=== PATIENT | female | born 1995 | race Caucasian/White ===

== ENCOUNTER → 2016-03-25 | Outpatient (CLI) | payer OTHER ==
[2016-03-25 16:30] LABS: CH 34.9; CHCM 35.3; HCT 36.1 % (34.0-46.0); HDW 2.71; HGB 12.3 gm/dL (11.4-16.0); MCH 33.8 pg (25.0-35.0); MCV 99.4 fL (80.0-100.0); Mean Platelet Volume 8.2; RBC 3.63 m/uL (3.80-5.40); RDW 12.6 % (11.5-15.5); WBC 16.1 k/uL (3.8-10.6)
== END | disposition home or self-care (01) ==
LOC: LABWHC1 15:11
PROVIDERS: ATTEND Obstetrics & Gynecology
DX: Z34.93 Encounter for supervision of normal pregnancy, unspecified, third trimester (principal); Z3A.00 Weeks of gestation of pregnancy not specified
CPT/HCPCS: 36415; 82950; 85027; 86850

== ENCOUNTER 2016-05-04 05:56 | Inpatient (IN) | payer OTHER ==
[2016-04-27 11:23] VITALS: BMI 29.6
[2016-05-04] MEDS ORDERED: ceFAZolin 2 GM in SODIUM CHLORIDE 0.9% 100 ML IVPB ONE (06:33)
[2016-05-04] MEDS ORDERED: CITRIC ACID-SODIUM CITRATE 15 ML CUP PO ONE (06:33)
[2016-05-04] MEDS ORDERED: CARBOPROST TROMETHAMINE 250 MCG/ML 1 ML AMP IM PRN (06:35)
[2016-05-04] MEDS ORDERED: LIDOCAINE 1% (PF) 10 MG/ML (30 ML SDV) SQ PRN (06:35)
[2016-05-04] MEDS ORDERED: METHYLERGONOVINE 0.2 MG/ML 1 ML AMP IM PRN (06:35)
[2016-05-04] MEDS ORDERED: OXYTOCIN 10 UNIT/ML 1 ML VIAL IM PRN (06:35)
[2016-05-04] MEDS ORDERED: TERBUTALINE 1 MG/ML VIAL SQ PRN (06:35)
[2016-05-04] MEDS ORDERED: LACTATED RINGERS 1,000 ML IV SCH ×2 (06:45)
[2016-05-04 06:46] LABS: Basophils # (A) 0.1 k/uL (0-0.2); Basophils % (A) 1 %; CHCM 35.8; Eosinophils # (A) 0.2 k/uL (0-0.7); Eosinophils % (A) 1 %; HCT 37.2 % (34.0-46.0); HDW 2.77; HGB 12.9 gm/dL (11.4-16.0); Luc # (Auto) 0.34; Luc % (Auto) 2; Lymphocytes # (A) 4.7 k/uL (1.0-4.8); Lymphocytes % (A) 27 %; MCH 34.1 pg (25.0-35.0); MCHC 34.7 g/dL (31.0-37.0); MCV 98.4 fL (80.0-100.0); Mean Platelet Volume 8.4; Monocytes # (A) 0.6 k/uL (0-1.0); Monocytes % (A) 3 %; Neutrophils # (A) 11.9 k/uL (1.3-7.7); Neutrophils % (A) 67 %; RBC 3.78 m/uL (3.80-5.40); RDW 13.1 % (11.5-15.5); WBC 17.8 k/uL (3.8-10.6); WBC (Perox) 18.65
[2016-05-04] MEDS ORDERED: ONDANSETRON 4 MG/2 ML VIAL ONE (07:54)
[2016-05-04] MEDS ORDERED: OXYTOCIN 10 UNIT/ML 1 ML VIAL IM ONE (07:54)
[2016-05-04] MEDS ORDERED: MORPHINE SULFATE (PF) 0.3 MG/0.3 ML SYR ONE (07:54)
[2016-05-04] MEDS ORDERED: KETOROLAC 30 MG/ML 1 ML VIAL ONE (07:54)
[2016-05-04] MEDS ORDERED: PHENYLEPHRINE-0.9% NACL SYG 1 MG/10 ML SYRINGE ONE (07:54)
[2016-05-04] MEDS ORDERED: NALBUPHINE 10 MG/ML AMPUL ONE (07:54)
[2016-05-04] MEDS ORDERED: ONDANSETRON 4 MG/2 ML VIAL IVP PRN ×2 (08:19→08:30)
[2016-05-04] MEDS ORDERED: NALOXONE 0.4 MG/ML 1 ML VIAL IV PRN ×2 (08:19→08:30)
[2016-05-04] MEDS ORDERED: diphenhydrAMINE 50 MG/ML 1 ML VIAL IVP PRN ×3 (08:19→08:30)
[2016-05-04] MEDS ORDERED: MORPHINE SULFATE 4 MG/ML SYRINGE IVP PRN (08:19)
[2016-05-04] MEDS ORDERED: Rhogam IMMUNE GLOBULIN 1,500 UNIT/1 ML IM ONE (08:30)
[2016-05-04] MEDS ORDERED: ZOLPIDEM 5 MG TAB PO PRN (08:30)
[2016-05-04] MEDS ORDERED: OXYTOCIN 30 UNITS/500 ML NS 30 UNIT in SALINE 1 500ML.BAG IV SCH (08:30)
[2016-05-04] MEDS ORDERED: diphenhydrAMINE 25 MG CAP PO PRN (08:30)
[2016-05-04] MEDS ORDERED: Acetaminophen-Codeine 300-30mg TAB PO PRN (08:30)
[2016-05-04] MEDS ORDERED: SIMETHICONE 80 MG CHEWABLE PO PRN (08:30)
[2016-05-04] MEDS ORDERED: diphenhydrAMINE 50 MG CAP PO PRN (08:30)
[2016-05-04] MEDS ORDERED: LANOLIN CREAM 5 GM TUBE TOPICAL PRN (08:30)
[2016-05-04] MEDS ORDERED: ACETAMINOPHEN TAB 325 MG TAB PO PRN (08:30)
[2016-05-04] MEDS ORDERED: IBUPROFEN 600 MG TAB PO PRN (08:30)
--- NOTE | 2016-05-04 08:35 | P.HPOB ---
History of Present Illness H&P Date: 05/04/16 Chief Complaint: repeat low transverse 21-year-old presents for repeat low transverse at 39 weeks and 6 days. She did want to have a vaginal after but had a herpes outbreak within the last couple weeks so section was in order. Review of Systems All systems: negative Constitutional: Denies chills, Denies fever Eyes: denies blurred vision, denies pain Ears, nose, mouth and throat: Denies headache, Denies sore throat Cardiovascular: Denies chest pain, Denies shortness of breath Respiratory: Denies cough Gastrointestinal: Denies abdominal pain, Denies diarrhea, Denies nausea, Denies vomiting Genitourinary: Denies dysuria, Denies hematuria Musculoskeletal: Denies myalgias Integumentary: Denies pruritus, Denies rash Neurological: Denies numbness, Denies weakness Psychiatric: Denies anxiety, Denies depression Endocrine: Denies fatigue, Denies weight change Past Medical History Past Medical History: GERD/Reflux Additional Past Medical History / Comment(s): gallstones, HSV. Obstetric history: She had one previous section. This is her second . She's had care with me since the first trimester but skipped her visits between 34 and 38 weeks. I was unable to give her acyclovir due to this and she did end up with a herpes outbreaks and requires a section. Blood type is AB negative, rubella immune, RPR nonreactive, hepatitis B-. History of Any Multi-Drug Resistant Organisms: None Reported Past Surgical History: Section Past Anesthesia/Blood Transfusion Reactions: No Reported Reaction Past Psychological History: Anxiety, Bipolar Smoking Status: Current every day smoker Past Alcohol Use History: None Reported Additional Past Alcohol Use History / Comment(s): smoker since age 14 1/2ppd Past Drug Use History: None Reported Additional Drug Use History / Comment(s): occasional not very often - Past Family History Mother Family Medical History: Fibromyalgia Additional Family Medical History / Comment(s): heart problems unknown Medications and Allergies Home Medications Medication Instructions Recorded Confirmed Type Calcium Carbonate [Tums] 500 mg PO DAILY PRN 04/27/16 04/27/16 History Pnv with Ca,No.72/Iron/FA 1 each PO DAILY 04/27/16 04/27/16 History [ Plus Tablet] Allergies Allergy/AdvReac Type Severity Reaction Status Date / Time metoclopramide HCl AdvReac PANICK Verified 04/27/16 11:11 [From Reglan] ATTACKS Exam Osteopathic Statement: *. No significant issues noted on an osteopathic structural exam other than those noted in the History and Physical/Consult. - Vital Signs Vital signs: Vital Signs Temp Pulse Resp BP Pulse Ox 05/04/16 06:12 96.6 F L 84 18 124/55 98 Intake and Output 05/03/16 05/04/16 05/04/16 22:59 06:59 14:59 Other: # Voids 1 Weight 73.482 kg Heart: Regular rate and rhythm Lungs: Clear to auscultation bilaterally Abdomen: Soft, nontender Extremities: Negative Homans sign Results Result Diagrams: 05/04/16 06:25 Abnormal Lab Results - Last 24 Hours (Table) 05/04/16 Range/Units 06:25 WBC 17.8 H (3.8-10.6) k/uL RBC 3.78 L (3.80-5.40) m/uL Neutrophils # 11.9 H (1.3-7.7) k/uL Assessment and Plan (1) Previous section Status: Acute (2) Herpes genitalis Status: Acute Plan: 1. Repeat low transverse
--- NOTE | 2016-05-04 08:36 | P.OP ---
Date of Procedure: 05/04/16 Preoperative Diagnosis: 1. at 39 weeks and 6 days 2. Previous 3. Herpes genitalis Postoperative Diagnosis: 1. at 39 weeks and 6 days 2. Previous 3. Herpes genitalis Procedure(s) Performed: Repeat low transverse Anesthesia: spinal Surgeon: Za Valdes Freight Booker #1: Jaqui Chery Estimated Blood Loss (ml): 400 IV fluids (ml): 1,500 Urine output (ml): 100 Pathology: other (Placenta) Condition: stable Disposition: floor Operative Findings: Viable male, Apgars 9, 9, weight 6 lbs. 5 oz. Description of Procedure: Patient was taken to the operating room where spinal anesthesia was found be adequate. She was prepped and draped in normal sterile fashion in dorsal supine position with a leftward tilt. Pfannenstiel skin incision was made the scalpel and carried through to the underlying layer of fascia with the scalpel. Fascia was incised in midline and carried bilaterally with the Sheets scissors. The superior aspect of the fascial incision was grasped with [place]land clamps elevated and the underlying rectus muscles dissected off with the Sheets's. Attention was then turned to inferior aspect of same incision which in a similar fashion was grasped tented up and the underlying rectus muscles dissected off with the Sheets's. The rectus muscles were the midline and the peritoneum was identified tented up and entered sharply with the scalpel. The incision was extended superiorly and inferiorly with good visualization of the bladder. The bladder blade was inserted and the vesicouterine peritoneum was incised the Metzenbaums then carried bilaterally and bladder flap created digitally. A low transverse incision was then made on the uterus with the scalpel. This was carried bilaterally and digital manner. Infant's head delivered atraumatically, nose and mouth bulb suctioned, cord clamped and cut, infant handed off to waiting nurses. Apgars 9,9, weight 6 lbs. 5 oz. Placenta delivered manually, intact with three-vessel cord. The uterus is exteriorized and cleared of all clots and debris. The uterine incision was closed with 0 Vicryl in a running locked fashion. Second layer of the same sutures used in imbricating fashion to obtain excellent hemostasis. Bladder flap was then reapproximated using 2-0 Vicryl in a running fashion. Both ovaries and tubes appeared normal. The uterus was placed back into the abdomen. The peritoneum was reapproximated using 2-0 Vicryl in a running fashion. The muscles were reapproximated using 2-0 Vicryl in interrupted fashion. The fascia was reapproximated using 0 Vicryl in a running fashion. The subcutaneous tissues closed with 3-0 Vicryl running fashion. The skin was closed leigh. Patient tolerated the procedure well, sponge and instrument counts were correct times 2 and she was taken to the recovery room in stable condition.
[2016-05-04] MEDS ORDERED: FAMOTIDINE 20 MG/2 ML VIAL IV PRN (08:43)
[2016-05-04] MEDS: LACTATED RINGERS 1,000 ML IV SCH ×2 (10:38→19:57)
[2016-05-04] MEDS: KETOROLAC 30 MG/ML 1 ML VIAL IVP PRN ×2 (16:38→22:59)
[2016-05-04] MEDS: SENNOSIDES-DOCUSATE SODIUM 1 EACH TAB PO SCH (20:04)
[2016-05-05] MEDS: LACTATED RINGERS 1,000 ML IV SCH (01:38)
[2016-05-05] MEDS: KETOROLAC 30 MG/ML 1 ML VIAL IVP PRN ×3 (05:46→18:21)
[2016-05-05 06:23] LABS: Basophils % (A) 0 %; CH 34.6; CHCM 34.5; Eosinophils # (A) 0.1 k/uL (0-0.7); Eosinophils % (A) 1 %; HCT 35.7 % (34.0-46.0); HDW 2.73; HGB 12.4 gm/dL (11.4-16.0); Luc # (Auto) 0.37; Luc % (Auto) 3; Lymphocytes % (A) 28 %; MCHC 34.7 g/dL (31.0-37.0); MCV 100.9 fL (80.0-100.0); Monocytes # (A) 0.6 k/uL (0-1.0); Monocytes % (A) 4 %; Neutrophils # (A) 8.9 k/uL (1.3-7.7); Neutrophils % (A) 64 %; RBC 3.54 m/uL (3.80-5.40); WBC (Perox) 15.01
--- NOTE | 2016-05-05 08:26 | P.PNOBGPC ---
Subjective - Subjective Principal diagnosis: Status post repeat low transverse postop day #1 Interval history: Patient seen and examined. Denies nausea, vomiting, chest pain, shortness of breath or calf pain. Tolerating regular diet, positive flatus. Patient reports: Reports appetite normal, Reports voiding normally, Reports pain well controlled, Reports ambulating normally [place]: doing well Objective - Vital Signs Latest vital signs: Vital Signs Temp Pulse Resp BP Pulse Ox 05/05/16 04:00 97.6 F 71 18 100/60 100 05/05/16 00:00 98.0 F 80 18 111/43 100 05/04/16 19:58 98.0 F 69 18 92/59 99 05/04/16 19:00 99 05/04/16 16:59 98 05/04/16 16:00 98.3 F 66 16 102/47 98 05/04/16 13:00 96 05/04/16 12:00 97.9 F 70 16 100/69 95 05/04/16 10:59 98 05/04/16 10:33 96.8 F L 69 16 104/59 100 05/04/16 10:03 71 16 106/59 98 05/04/16 09:33 73 16 108/61 99 05/04/16 09:19 100 05/04/16 09:18 68 16 109/62 100 05/04/16 09:03 72 16 107/58 99 05/04/16 08:48 84 16 108/59 100 05/04/16 08:33 96.5 F L 83 16 107/59 99 Intake and Output 05/04/16 05/05/16 05/05/16 22:59 06:59 14:59 Intake Total 125 Output Total 1600 800 Balance -1475 -800 Intake: Intake, IV Titration 125 Amount Lactated Ringers 1,000 ml 125 @ 125 mls/hr IV .Q8H JOÃO Rx#:[id number] Output: Urine 1600 800 Uretheral (Hoffmann) 600 Other: # Voids 1 1 # Bowel Movements 0 - Exam Lungs: bilateral: normal Chest: Normal S1, Normal S2 Extremities: Present: normal Abdomen: Present: normal appearance, soft. Absent: distention, tenderness Incision: Present: normal, dry, intact Uterus: Present: normal, firm - Labs Labs: Abnormal Lab Results - Last 24 Hours (Table) 05/05/16 Range/Units 06:11 WBC 14.0 H (3.8-10.6) k/uL RBC 3.54 L (3.80-5.40) m/uL MCV 100.9 H (80.0-100.0) fL Neutrophils # 8.9 H (1.3-7.7) k/uL Assessment and Plan (1) Previous section Current Visit: Yes Status: Resolved Code(s): Z98.891 - HISTORY OF UTERINE SCAR FROM PREVIOUS SURGERY SNOMED Code(s): 230726727 (2) Herpes genitalis Current Visit: Yes Status: Chronic Code(s): A60.00 - HERPESVIRAL INFECTION OF UROGENITAL SYSTEM, UNSPECIFIED SNOMED Code(s): 31083751 (3) Status post repeat low transverse section Narrative/Plan: 1. Increase ambulation 2. Continue pain control Current Visit: Yes Status: Acute Code(s): Z98.891 - HISTORY OF UTERINE SCAR FROM PREVIOUS SURGERY SNOMED Code(s): 664354508
[2016-05-05] MEDS: SENNOSIDES-DOCUSATE SODIUM 1 EACH TAB PO SCH (09:01)
[2016-05-05 09:21] VITALS: RESP 16
--- NOTE | 2016-05-05 11:35 | P.PN ---
Progress Note - Text Date: 05-05-16 Time: 706 The patient is status post section Vital signs stable VAS:[0-10] Patient has no complaints of pain. The patient incurred some minimal itching yesterday, this itching is now subsiding. Pain meds to be managed by service.
[2016-05-06] MEDS: Acetaminophen-Codeine 300-30mg TAB PO PRN ×2 (00:04→04:10)
[2016-05-06] MEDS: SENNOSIDES-DOCUSATE SODIUM 1 EACH TAB PO SCH ×2 (00:47→08:15)
[2016-05-06 08:18] VITALS: BP 117/74; PULSE 63; TEMP 98.2
--- NOTE | 2016-05-06 08:53 | P.DS ---
Providers Date of admission: 05/04/16 05:56 Expected date of discharge: 05/06/16 Attending physician: Za Valdes Primary care physician: Stated None Hospital Course: This is a 21-year-old female 2 para 1 who presented for scheduled repeat section. She delivered a viable male by section on 05/04/2016. Her post operative course was uncomplicated. She has been doing okay alternating ibuprofen and Tylenol 3. She is passing flatus but no bowel movement yet. She is urinating without difficulty. She is doing well with feeding. Vital signs are stable. Abdomen is soft with positive bowel sounds 4. Incision is clean dry and intact. Extremities show negative Homans. Impression is status post repeat section postoperative day # 2. Plan is to discharge home today. She is advised to follow up with Dr. Valdes in 1 week for a postoperative check and in 6 weeks for check. Routine and postoperative instructions are given. She is advised to call the office if she has any further questions or concerns prior to her appointment time. She will be given prescriptions for Tylenol 3 and ibuprofen. [place] will be removed and Steri-Strips placed prior to discharge. Procedures: Repeat low transverse section on 05/04/2016 Patient Condition at Discharge: Stable Plan - Discharge Summary New Discharge Prescriptions: Acetaminophen-Codeine 300-30mg [Tylenol w/codeine #3] 1 each PO Q4HR PRN #30 tab PRN Reason: Mild Pain Ibuprofen [Motrin] 600 mg PO Q6HR PRN #60 tab PRN Reason: Mild Pain Or Fever >= 100.5 Discharge Medication List Calcium Carbonate [Tums] 500 mg PO DAILY PRN 04/27/16 [History] Pnv with Ca,No.72/Iron/FA [ Plus Tablet] 1 each PO DAILY 04/27/16 [ History] Acetaminophen-Codeine 300-30mg [Tylenol w/codeine #3] 1 each PO Q4HR PRN #30 tab 05/06/16 [Rx] Ibuprofen [Motrin] 600 mg PO Q6HR PRN #60 tab 05/06/16 [Rx] Follow up Appointment(s)/Referral(s): Za Valdes DO [Doctor of Osteopathic Medicine] - 1 Week Activity/Diet/Wound Care/Special Instructions: Instructions 1. Do not begin any exercise program for 3 weeks. 2. Do not resume sexual relations for 3 weeks or longer if uncomfortable. 3. You may take tub baths or showers at any time. 4. You may use tampons if desired after 3 weeks. 5. Keep the area of episiotomy (stitches) clean and dry. 6. If you are not nursing, wear a good fitting, supportive bra during the day and limit fluid intake for at least 1 week to prevent breast engorgement. 7. Call the office, [phone], within the next week to make appointment for your 6 week checkup if it has not already been made. 8. Report any of the following occurrences to the doctor promptly: a. Heavy, excessive bleeding b. Chills, fever c. Burning or frequency of urination d. Pain or redness and breasts if nursing e. Increasing pain or swelling in episiotomy (stitches). In addition to the above instructions, the following additional should be followed: 1. No heavy lifting or straining (exercising) until after 6 week checkup. 2. Keep abdominal incision clean and dry: You may wear a dressing if more comfortable. 3. Make office appointment for 10 days after going home or as instructed by her doctor. Discharge Disposition: HOME SELF-CARE
== END 2016-05-06 15:40 | disposition home or self-care (01) | DRG 765 ==
LOC: 4FBP 05:56
PROVIDERS: ADMIT Obstetrics & Gynecology; ATTEND Obstetrics & Gynecology
PROC: 10D00Z1 Extraction of Products of Conception, Low, Open Approach (ICD-10-PCS; principal; 2016-05-04 08:07)
DX: O34.211 Maternal care for low transverse scar from previous cesarean delivery (principal); O98.32 Other infections with a predominantly sexual mode of transmission complicating childbirth; Z37.0 Single live birth; O99.334 Smoking (tobacco) complicating childbirth; A60.00 Herpesviral infection of urogenital system, unspecified; F17.200 Nicotine dependence, unspecified, uncomplicated; Z3A.39 39 weeks gestation of pregnancy
CPT/HCPCS: 85025; 86850; 86870; 86880; 86900; 86901; 88307

== ENCOUNTER 2016-09-25 08:08 | Emergency (ER) | payer OTHER ==
[2016-09-25] MEDS ORDERED: SODIUM CHLORIDE 0.9% 2,000 ML IV STA (08:22)
[2016-09-25] MEDS ORDERED: METOCLOPRAMIDE 5 MG/ML 2 ML VIAL IVP STA ×2 (08:36→09:37)
[2016-09-25] MEDS ORDERED: diphenhydrAMINE 50 MG/ML 1 ML VIAL IVP STA (08:37)
[2016-09-25 08:51] LABS: Basophils % (A) 0 %; CH 33.7; CHCM 35.7; Eosinophils # (A) 0.1 k/uL (0-0.7); Eosinophils % (A) 0 %; HCT 42.8 % (34.0-46.0); HGB 14.9 gm/dL (11.4-16.0); Luc # (Auto) 0.19; Luc % (Auto) 2; Lymphocytes # (A) 2.3 k/uL (1.0-4.8); Lymphocytes % (A) 17 %; MCHC 34.9 g/dL (31.0-37.0); MCV 94.8 fL (80.0-100.0); Mean Platelet Volume 7.9; Monocytes # (A) 0.6 k/uL (0-1.0); Monocytes % (A) 4 %; Neutrophils # (A) 10.1 k/uL (1.3-7.7); Neutrophils % (A) 76 %; RBC 4.51 m/uL (3.80-5.40); RDW 13.7 % (11.5-15.5); WBC 13.3 k/uL (3.8-10.6); WBC (Perox) 12.95
[2016-09-25 09:01] LABS: ALT 30 U/L (9-52); AST 17 U/L (14-36); Alkaline Phosphatase 77 U/L (38-126); Amylase 48 U/L (30-110); Anion Gap 13 mmol/L; Blood Urea Nitrogen 11 mg/dL (7-17); Calcium 9.8 mg/dL (8.4-10.2); Carbon Dioxide 21 mmol/L (22-30); Chloride 104 mmol/L (98-107); Glucose 79 mg/dL (74-99); Non-African American GFR(MDRD) >60 (>60 ml/min/1.73 sqM); Potassium 4.2 mmol/L (3.5-5.1); Sodium 138 mmol/L (137-145); Total Bilirubin 0.5 mg/dL (0.2-1.3); Total Protein 7.2 g/dL (6.3-8.2)
--- NOTE | 2016-09-25 09:06 | ED ---
Nausea/Vomiting/Diarrhea HPI - General Chief complaint: Nausea/Vomiting/Diarrhea Stated complaint: VOMITING 5 WEEKS PREG Time Seen by Provider: 09/25/16 08:22 Source: patient, RN notes reviewed Mode of arrival: ambulatory Limitations: no limitations - History of Present Illness Initial comments: 21-year-old female presents emergency Department with chief complaint of nausea vomiting or . Patient states that she delivered in May and states that she just found out 1 week ago that she was again. Patient denies any vaginal bleeding vaginal discharge. Patient states her blood type is AB-. Patient states that she did receive program during her last . Patient again denies any vaginal bleeding. Patient states that she's had nausea vomiting last few days but last night she states that she cannot stop. Patient states that she has an adverse reaction to Reglan but states it only causes her to feel anxious states that if she was given Benadryl this does go away. Patient denies any abdominal pain no cramping no chest pain or shortness breath no fever no chills no dysuria no hematuria. - Related Data Home Medications Medication Instructions Recorded Confirmed Calcium Carbonate [Tums] 500 mg PO DAILY PRN 04/27/16 04/27/16 Pnv,Calcium 72/Iron/Folic Acid 1 each PO DAILY 04/27/16 04/27/16 [ Plus Tablet] Previous Rx's Medication Instructions Recorded Acetaminophen-Codeine 300-30mg 1 each PO Q4HR PRN #30 tab 05/06/16 [Tylenol w/codeine #3] Ibuprofen [Motrin] 600 mg PO Q6HR PRN #60 tab 05/06/16 Allergies Allergy/AdvReac Type Severity Reaction Status Date / Time metoclopramide HCl AdvReac PANICK Verified 09/25/16 08:15 [From Reglan] ATTACKS Review of Systems ROS Statement: Those systems with pertinent positive or pertinent negative responses have been documented in the HPI. ROS Other: All systems not noted in ROS Statement are negative. Past Medical History Past Medical History: GERD/Reflux Additional Past Medical History / Comment(s): gallstones, HSV. Obstetric history: She had one previous section. This is her second . She's had care with me since the first trimester but skipped her visits between 34 and 38 weeks. I was unable to give her acyclovir due to this and she did end up with a herpes outbreaks and requires a section. Blood type is AB negative, rubella immune, RPR nonreactive, hepatitis B-. History of Any Multi-Drug Resistant Organisms: None Reported Past Surgical History: Section Past Anesthesia/Blood Transfusion Reactions: No Reported Reaction Past Psychological History: Anxiety Smoking Status: Current every day smoker Past Alcohol Use History: None Reported Past Drug Use History: None Reported, Marijuana - Past Family History Mother Family Medical History: Fibromyalgia Additional Family Medical History / Comment(s): heart problems unknown General Exam Limitations: no limitations General appearance: alert, in no apparent distress Respiratory exam: Present: normal lung sounds bilaterally. Absent: respiratory distress, wheezes, rales, rhonchi, stridor Cardiovascular Exam: Present: regular rate, normal rhythm, normal heart sounds. Absent: systolic murmur, diastolic murmur, rubs, gallop, clicks GI/Abdominal exam: Present: soft, normal bowel sounds. Absent: distended, tenderness, guarding, rebound, rigid Skin exam: Present: warm, dry, intact, normal color. Absent: rash Course Vital Signs 09/25/16 08:12 Temperature 99.4 F Pulse Rate 71 Respiratory 18 Rate Blood Pressure 111/61 O2 Sat by Pulse 100 Oximetry Medical Decision Making - Medical Decision Making Patient's is requesting Reglan for antinausea with Benadryl. She states only causes panic attacks she has no respiratory issues no angioedema no affect reaction. Patient states that she does feel improved after IV fluids, Reglan. Patient's ultrasound does show viable IUP 7 weeks and 6 days. Patient has no vaginal bleeding or vaginal discharge. She does not prefer to have a pelvic exam at this time. Patient will follow-up with her TRANSPORTATION ANALYST. Return parameters were discussed. - Lab Data Result diagrams: 09/25/16 08:33 09/25/16 08:33 Lab Results 09/25/16 09/25/16 09/25/16 Range/Units 08:33 08:33 09:00 WBC 13.3 H (3.8-10.6) k/uL RBC 4.51 (3.80-5.40) m/uL Hgb 14.9 (11.4-16.0) gm/dL Hct 42.8 (34.0-46.0) % MCV 94.8 (80.0-100.0) fL MCH 33.0 (25.0-35.0) pg MCHC 34.9 (31.0-37.0) g/dL RDW 13.7 (11.5-15.5) % Plt Count 269 (150-450) k/uL Neutrophils % 76 % Lymphocytes % 17 % Monocytes % 4 % Eosinophils % 0 % Basophils % 0 % Neutrophils # 10.1 H (1.3-7.7) k/uL Lymphocytes # 2.3 (1.0-4.8) k/uL Monocytes # 0.6 (0-1.0) k/uL Eosinophils # 0.1 (0-0.7) k/uL Basophils # 0.0 (0-0.2) k/uL Sodium 138 (137-145) mmol/L Potassium 4.2 (3.5-5.1) mmol/L Chloride 104 (98-107) mmol/L Carbon Dioxide 21 L (22-30) mmol/L Anion Gap 13 mmol/L BUN 11 (7-17) mg/dL Creatinine 0.66 (0.52-1.04) mg/dL Est GFR (MDRD) Af Amer >60 (>60 ml/min/1.73 sqM) Est GFR (MDRD) Non-Af >60 (>60 ml/min/1.73 sqM) Glucose 79 (74-99) mg/dL Calcium 9.8 (8.4-10.2) mg/dL Total Bilirubin 0.5 (0.2-1.3) mg/dL AST 17 (14-36) U/L ALT 30 (9-52) U/L Alkaline Phosphatase 77 (38-126) U/L Total Protein 7.2 (6.3-8.2) g/dL Albumin 4.9 (3.5-5.0) g/dL Amylase 48 (30-110) U/L Lipase 42 (23-300) U/L HCG, Quant 701844.0 mIU/mL Urine Color Yellow Urine Appearance Cloudy H (Clear) Urine pH 7.0 (5.0-8.0) Ur Specific [place] 1.023 (1.001-1.035) Urine Protein 1+ H (Negative) Urine Glucose (UA) Negative (Negative) Urine Ketones 3+ H (Negative) Urine Blood Negative (Negative) Urine Nitrite Negative (Negative) Urine Bilirubin Negative (Negative) Urine Urobilinogen 2.0 (<2.0) mg/dL Ur Leukocyte Esterase Trace H (Negative) Urine RBC 1 (0-5) /hpf Urine WBC 2 (0-5) /hpf Ur Squamous Epith Cells 3 (0-4) /hpf Urine Bacteria Rare H (None) /hpf Hyaline Casts 1 (0-2) /lpf Urine Mucus Few H (None) /hpf Disposition Clinical Impression: Acute vomiting, Disposition: HOME SELF-CARE Condition: Stable Instructions: Acute Nausea and Vomiting (ED) Additional Instructions: Please return to the Emergency Department if symptoms worsen or any other concerns. Referrals: Flaquito Dunlap MD [Primary Care Provider] - 1-2 days Time of Disposition: 10:19
[2016-09-25 09:19] LABS: Appearance,Urine Cloudy (Clear); Bacteria,Urine Rare /hpf; Bilirubin,Urine Negative (Negative); Glucose,Urine (UA) Negative (Negative); Ketones,Urine 3+ (Negative); Leukocyte Esterase,Urine Trace (Negative); Mucus,Urine Few /hpf; Nitrite,Urine Negative (Negative); Particle Count 11222; Protein,Urine 1+ (Negative); RBC,Urine 1 /hpf (0-5); Specific Gravity,Urine 1.023 (1.001-1.035); Squamous Epithelial Cell,Urine 3 /hpf (0-4); UA Billing (MACRO vs. MICRO) MICRO; WBC,Urine 2 /hpf (0-5)
--- NOTE | 2016-09-25 09:34 | US ---
EXAMINATION TYPE: US OB <=14 wks transvag DATE OF EXAM: 09/25/2016 COMPARISON: NONE CLINICAL HISTORY: Pain. Vomiting x 1 day, patient unsure of exact LMP, history of 2 c-sections, gravi da 3, para 2 EXAM PERFORMED: Transabdominal (TA) EXAM MEASUREMENTS: GESTATIONAL AGE / DATING Physician Established: Not established yet Dates by LMP: Unknown Dates by First Scan: This is 1st scan Dates by Current Scan for: (7 weeks/6 days) EDC: 05/08/2017 MATERNAL ANATOMY Uterus: 10.4 x 7.0 x 8.0cm, anteverted Right Ovary: 5.2 x 2.7 x 3.9cm Left Ovary: 3.4 x 1.6 x 2.0cm Post CDS / Adnexa: wnl Presence of free fluid: no Presence of corpus luteal cyst: 2.7 x 2.5 x 3.1cm cystic area right ovary, possible corpus luteum Presence of subchorionic bleed: no GESTATION / SURVEY CRL: 1.5cm ( 7 weeks/6 days) Yolk Sac (normal less than 6mm): 3.5mm Heart Rate: 160 bpm Rhythm: Normal IUP: Viable IUP Date of LMP: Patient unsure Beta HcG (if available): Not available at time of exam Viable single IUP measuring 7 weeks 6 days with a heart rate of 160bpm and an estimated delivery date of 05/08/2017. IMPRESSION: Single viable intrauterine . Corpus luteal cyst right ovary.
[2016-09-25] MEDS ORDERED: SODIUM CHLORIDE 0.9% 1,000 ML IV ONE (10:34)
[2016-09-25 11:14] VITALS: BP 95/52; PULSE 72; RESP 18; TEMP 98.2
== END 2016-09-25 11:14 | disposition home or self-care (01) ==
LOC: EC 08:08
DX: O21.9 Vomiting of pregnancy, unspecified (principal); O26.893 Other specified pregnancy related conditions, third trimester; O99.331 Smoking (tobacco) complicating pregnancy, first trimester; B00.9 Herpesviral infection, unspecified; F17.200 Nicotine dependence, unspecified, uncomplicated; Z3A.01 Less than 8 weeks gestation of pregnancy; Z88.8 Allergy status to other drugs, medicaments and biological substances
CPT/HCPCS: 99284; 96374; 96375; 96376; 96361; 36415; 80053; 82150; 83690; 85025; 81001; 84702; 76801; J1200; J2765

== ENCOUNTER 2016-10-14 08:13 | Emergency (ER) | payer OTHER ==
[2016-10-14 08:19] VITALS: RESP 15
[2016-10-14] MEDS ORDERED: SODIUM CHLORIDE 0.9% 1,000 ML IV STA (08:27)
[2016-10-14] MEDS ORDERED: ACETAMINOPHEN IV (For NPO) 1,000 MG in SALINE 100 100ML.BAG IVPB STA (08:28)
--- NOTE | 2016-10-14 08:56 | ED ---
General Adult HPI - General Chief complaint: Nausea/Vomiting/Diarrhea Stated complaint: vomiting in /back pain Time Seen by Provider: 10/14/16 08:23 Source: patient, RN notes reviewed Mode of arrival: ambulatory Limitations: no limitations - History of Present Illness Initial comments: Patient 21-year-old female who is brought to 14 weeks , with chief complaint of nausea vomiting that is increased over the last 3-4 days. She states she had a difficult time keeping anything down last 3-4 days. Patient denies any abdominal pain. Denies any vaginal bleeding or discharge. States she has not seen OB during this . G3, P2. Denies any other complaints. Patient denies any recent fever, chills, shortness of breath, chest pain, back pain, numbness or tingling, dysuria or hematuria, constipation or diarrhea, headaches or visual changes, or any other complaints. - Related Data Home Medications Medication Instructions Recorded Confirmed Calcium Carbonate [Tums] 500 mg PO DAILY PRN 04/27/16 10/14/16 Pnv,Calcium 72/Iron/Folic Acid 1 tab PO DAILY 04/27/16 10/14/16 [ Plus Tablet] Acetaminophen-Codeine 300-30mg 1 tab PO Q4HR PRN 10/14/16 10/14/16 [Tylenol w/codeine #3] Previous Rx's Medication Instructions Recorded Ibuprofen [Motrin] 600 mg PO Q6HR PRN #60 tab 05/06/16 Metoclopramide HCl [Reglan] 10 mg PO Q6HR PRN #5 day 10/14/16 Allergies Allergy/AdvReac Type Severity Reaction Status Date / Time metoclopramide HCl AdvReac PANICK Verified 10/14/16 08:59 [From Reglan] ATTACKS Review of Systems ROS Statement: Those systems with pertinent positive or pertinent negative responses have been documented in the HPI. ROS Other: All systems not noted in ROS Statement are negative. Past Medical History Past Medical History: GERD/Reflux Additional Past Medical History / Comment(s): gallstones, HSV. Obstetric history: She had one previous section. This is her second . She's had care with me since the first trimester but skipped her visits between 34 and 38 weeks. I was unable to give her acyclovir due to this and she did end up with a herpes outbreaks and requires a section. Blood type is AB negative, rubella immune, RPR nonreactive, hepatitis B-. History of Any Multi-Drug Resistant Organisms: None Reported Past Surgical History: Section Past Anesthesia/Blood Transfusion Reactions: No Reported Reaction Past Psychological History: Anxiety Smoking Status: Current every day smoker Past Alcohol Use History: None Reported Past Drug Use History: None Reported, Marijuana - Past Family History Mother Family Medical History: Fibromyalgia Additional Family Medical History / Comment(s): heart problems unknown General Exam - General Exam Comments Initial Comments: General: The patient is awake and alert, in no distress, and does not appear acutely ill. Eye: Pupils are equal, round and reactive to light, extra-ocular movements are intact. No nystagmus. There is normal conjunctiva bilaterally. No signs of icterus. Ears, nose, mouth and throat: There are moist mucous membranes and no oral lesions. Neck: The neck is supple, there is no tenderness or JVD. Cardiovascular: There is a regular rate and rhythm. No murmur, rub or gallop is appreciated. Respiratory: Lungs are clear to auscultation, respirations are non-labored, breath sounds are equal. No wheezes, stridor, rales, or rhonchi. Gastrointestinal: Soft, non-distended, non-tender abdomen without masses or organomegaly noted. There is no rebound or guarding present. No CVA tenderness. Bowel sounds are unremarkable. Musculoskeletal: Normal ROM, no tenderness. Strength 5/5. Sensation intact. Pulses equal bilaterally 2+. Neurological: A&O x 3. CN II-XII intact, There are no obvious motor or sensory deficits. Coordination appears grossly intact. Speech is normal. Skin: Skin is warm and dry and no rashes or lesions are noted. Psychiatric: Cooperative, appropriate mood & affect, normal judgment. Limitations: no limitations Course Vital Signs 10/14/16 08:15 Temperature 96.9 F L Pulse Rate 75 Respiratory 15 Rate Blood Pressure 123/71 O2 Sat by Pulse 100 Oximetry Medical Decision Making - Medical Decision Making patient reexamined at this time shows no signs of distress. Patient's labs been reviewed. Patient's previous ultrasound on previous visit was reviewed shows single IUP 7 weeks 6 days at that time. Patient has no abdominal pain. No vaginal bleeding or discharge. Patient has not seen OB during this will be given OB on-call is optional follow-up with. Will be given a prescription for vitamins. Advised to increase her oral fluids. Advised return to emergency room for any other concerns. - Lab Data Result diagrams: 10/14/16 08:37 10/14/16 08:37 Lab Results 10/14/16 10/14/16 10/14/16 Range/Units 08:37 08:37 08:37 WBC 12.0 H (3.8-10.6) k/uL RBC 4.47 (3.80-5.40) m/uL Hgb 14.9 (11.4-16.0) gm/dL Hct 42.5 (34.0-46.0) % MCV 95.2 (80.0-100.0) fL MCH 33.3 (25.0-35.0) pg MCHC 35.0 (31.0-37.0) g/dL RDW 13.3 (11.5-15.5) % Plt Count 345 (150-450) k/uL Neutrophils % 70 % Lymphocytes % 23 % Monocytes % 4 % Eosinophils % 1 % Basophils % 0 % Neutrophils # 8.4 H (1.3-7.7) k/uL Lymphocytes # 2.8 (1.0-4.8) k/uL Monocytes # 0.5 (0-1.0) k/uL Eosinophils # 0.1 (0-0.7) k/uL Basophils # 0.0 (0-0.2) k/uL Sodium 138 (137-145) mmol/L Potassium 4.2 (3.5-5.1) mmol/L Chloride 103 (98-107) mmol/L Carbon Dioxide 21 L (22-30) mmol/L Anion Gap 14 mmol/L BUN 13 (7-17) mg/dL Creatinine 0.65 (0.52-1.04) mg/dL Est GFR (MDRD) Af Amer >60 (>60 ml/min/1.73 sqM) Est GFR (MDRD) Non-Af >60 (>60 ml/min/1.73 sqM) Glucose 78 (74-99) mg/dL Calcium 9.8 (8.4-10.2) mg/dL Total Bilirubin 0.6 (0.2-1.3) mg/dL AST 26 (14-36) U/L ALT 54 H (9-52) U/L Alkaline Phosphatase 61 (38-126) U/L Total Protein 7.5 (6.3-8.2) g/dL Albumin 4.9 (3.5-5.0) g/dL Lipase 42 (23-300) U/L Urine Color Yellow Urine Appearance Clear (Clear) Urine pH 6.0 (5.0-8.0) Ur Specific [place] 1.023 (1.001-1.035) Urine Protein 1+ H (Negative) Urine Glucose (UA) Negative (Negative) Urine Ketones Trace H (Negative) Urine Blood Negative (Negative) Urine Nitrite Negative (Negative) Urine Bilirubin Negative (Negative) Urine Urobilinogen 2.0 (<2.0) mg/dL Ur Leukocyte Esterase Trace H (Negative) Urine WBC 3 (0-5) /hpf Ur Squamous Epith Cells 4 (0-4) /hpf Urine Mucus Occasional H (None) /hpf Disposition Clinical Impression: Hyperemesis gravidarum Disposition: HOME SELF-CARE Condition: Good Instructions: Hyperemesis Gravidarum (ED) Additional Instructions: Please use medication as discussed. please follow-up with [facility] over the next 2 days. Please return to emergency room if the symptoms increase or worsen or for any other concerns. Prescriptions: Metoclopramide HCl [Reglan] 10 mg PO Q6HR PRN #5 day PRN Reason: Nausea Referrals: Flaquito Dunlap MD [Primary Care Provider] - 1-2 days Peng Minaya MD [STAFF PHYSICIAN] - 1-2 days Time of Disposition: 10:15
[2016-10-14 08:57] LABS: Basophils % (A) 0 %; CH 34.5; CHCM 36.3; Eosinophils # (A) 0.1 k/uL (0-0.7); Eosinophils % (A) 1 %; HCT 42.5 % (34.0-46.0); HDW 2.39; HGB 14.9 gm/dL (11.4-16.0); Luc # (Auto) 0.23; Luc % (Auto) 2; Lymphocytes # (A) 2.8 k/uL (1.0-4.8); Lymphocytes % (A) 23 %; MCH 33.3 pg (25.0-35.0); MCV 95.2 fL (80.0-100.0); Mean Platelet Volume 7.4; Monocytes # (A) 0.5 k/uL (0-1.0); Monocytes % (A) 4 %; Neutrophils # (A) 8.4 k/uL (1.3-7.7); Neutrophils % (A) 70 %; RBC 4.47 m/uL (3.80-5.40); RDW 13.3 % (11.5-15.5)
[2016-10-14 09:01] LABS: Appearance,Urine Clear (Clear); Bilirubin,Urine Negative (Negative); Glucose,Urine (UA) Negative (Negative); Ketones,Urine Trace (Negative); Leukocyte Esterase,Urine Trace (Negative); Mucus,Urine Occasional /hpf; Nitrite,Urine Negative (Negative); Particle Count 7530; Protein,Urine 1+ (Negative); Specific Gravity,Urine 1.023 (1.001-1.035); Squamous Epithelial Cell,Urine 4 /hpf (0-4); UA Billing (MACRO vs. MICRO) MICRO; WBC,Urine 3 /hpf (0-5)
[2016-10-14 09:03] LABS: ALT 54 U/L (9-52); AST 26 U/L (14-36); Alkaline Phosphatase 61 U/L (38-126); Anion Gap 14 mmol/L; Blood Urea Nitrogen 13 mg/dL (7-17); Calcium 9.8 mg/dL (8.4-10.2); Carbon Dioxide 21 mmol/L (22-30); Chloride 103 mmol/L (98-107); Glucose 78 mg/dL (74-99); Non-African American GFR(MDRD) >60 (>60 ml/min/1.73 sqM); Potassium 4.2 mmol/L (3.5-5.1); Sodium 138 mmol/L (137-145); Total Bilirubin 0.6 mg/dL (0.2-1.3); Total Protein 7.5 g/dL (6.3-8.2)
[2016-10-14] MEDS ORDERED: METOCLOPRAMIDE 5 MG/ML 2 ML VIAL IVP STA (10:15)
[2016-10-14 11:03] VITALS: BP 106/55; PULSE 62; TEMP 98
== END 2016-10-14 11:10 | disposition home or self-care (01) ==
LOC: EC 08:13
DX: O21.0 Mild hyperemesis gravidarum (principal); O99.331 Smoking (tobacco) complicating pregnancy, first trimester; F17.200 Nicotine dependence, unspecified, uncomplicated; Z88.8 Allergy status to other drugs, medicaments and biological substances; Z3A.14 14 weeks gestation of pregnancy; Z79.899 Other long term (current) drug therapy
CPT/HCPCS: 36415; 80053; 83690; 85025; 81001; 84702; 87086; 99284; 96374; 96375; 96361; J2765; J0131

== ENCOUNTER 2016-11-07 16:47 | Emergency (ER) | payer OTHER ==
--- NOTE | 2016-11-07 17:34 | ED ---
General Adult HPI - General Chief complaint: Abdominal Pain Stated complaint: Abd Pain 15 weeks Time Seen by Provider: 11/07/16 17:30 Source: patient Mode of arrival: ambulatory Limitations: no limitations - History of Present Illness Initial comments: Patient is a 21-year-old female who is currently 15 weeks who presents to the emergency department for evaluation of lower abdominal cramping. Patient reports that today she began experiencing crampy abdominal pain which she describes as similar in nature to uterine contractions she experienced during childbirth. Patient reports she's had persistent nausea throughout the first trimester of this but she is not experiencing any worsening nausea today or any vomiting. She does report having diarrhea earlier in the day. She denies any dysuria, urinary frequency or hesitancy. She denies any vaginal bleeding or discharge. Patient has not received any care in this yet. She states because of insurance issues. Patient is not currently taking vitamins she states that this is because she does not have insurance as well. She is currently a every day cigarette smoker. Patient states she came to the emergency room this evening because she was concerned that she may be having a miscarriage. Patient states that if she were not was experiencing similar symptoms she would assume it was a stomach flu and would not come to the hospital. - Related Data Home Medications Medication Instructions Recorded Confirmed No Known Home Medications [No 11/07/16 11/07/16 Known Home Medications] Allergies Allergy/AdvReac Type Severity Reaction Status Date / Time metoclopramide HCl AdvReac PANICK Verified 11/07/16 18:09 [From Reglan] ATTACKS Review of Systems ROS Statement: Those systems with pertinent positive or pertinent negative responses have been documented in the HPI. ROS Other: All systems not noted in ROS Statement are negative. Constitutional: Denies: fever, weight change (Patient has not gained weight during this , she attributes this to nausea) Respiratory: Denies: cough Cardiovascular: Denies: chest pain, palpitations Endocrine: Reports: fatigue Gastrointestinal: Reports: abdominal pain, diarrhea Genitourinary: Denies: urgency, dysuria, discharge Musculoskeletal: Denies: back pain Skin: Denies: rash, lesions Neurological: Denies: headache Psychiatric: Denies: anxiety, depression Hematological/Lymphatic: Denies: easy bleeding, easy bruising Past Medical History Past Medical History: GERD/Reflux Additional Past Medical History / Comment(s): gallstones, HSV. Obstetric history: She had one previous section. This is her second . She's had care with me since the first trimester but skipped her visits between 34 and 38 weeks. I was unable to give her acyclovir due to this and she did end up with a herpes outbreaks and requires a section. Blood type is AB negative, rubella immune, RPR nonreactive, hepatitis B-. History of Any Multi-Drug Resistant Organisms: None Reported Past Surgical History: Section Past Anesthesia/Blood Transfusion Reactions: No Reported Reaction Past Psychological History: Anxiety Smoking Status: Current every day smoker Past Alcohol Use History: None Reported Past Drug Use History: Marijuana - Past Family History Mother Family Medical History: Fibromyalgia Additional Family Medical History / Comment(s): heart problems unknown General Exam Limitations: no limitations General appearance: alert, in no apparent distress Head exam: Present: atraumatic, normocephalic, normal inspection Eye exam: Present: normal appearance ENT exam: Present: normal exam, mucous membranes moist Neck exam: Present: normal inspection. Absent: tenderness, meningismus, lymphadenopathy Respiratory exam: Present: normal lung sounds bilaterally. Absent: respiratory distress, wheezes, rales, rhonchi, stridor Cardiovascular Exam: Present: regular rate, normal rhythm, normal heart sounds. Absent: systolic murmur, diastolic murmur, rubs, gallop, clicks GI/Abdominal exam: Present: soft, normal bowel sounds. Absent: distended, tenderness, guarding, rebound, rigid Rectal exam: Present: deferred Extremities exam: Present: normal inspection, full ROM, normal capillary refill. Absent: tenderness, pedal edema, joint swelling, calf tenderness Back exam: Present: normal inspection Neurological exam: Present: alert, oriented X3 Psychiatric exam: Present: normal affect, normal mood Skin exam: Present: warm, dry, intact, normal color. Absent: rash Course Vital Signs 11/07/16 11/07/16 11/07/16 17:04 18:57 20:20 Temperature 99.3 F 98.2 F 98.5 F Pulse Rate 77 67 75 Respiratory 18 17 16 Rate Blood Pressure 120/58 102/56 122/83 O2 Sat by Pulse 100 100 99 Oximetry Medical Decision Making - Medical Decision Making Patient was seen and evaluated, vital signs were reviewed Vital signs revealed no SIRS criteria Physical exam concerning for suprapubic cramping Urinalysis and labs were ordered I discussed with the patient her propper technique for collection of urinalysis to ensure a clean catch this is essential in early She provided a urinalysis which reveals no evidence of acute urinary tract infection Culture was ordered Labs reveal leukocytosis with neutrophilia Ultrasound of the uterus reveals a single intrauterine at 14 weeks gestation with a heart rate of 161 Considering the low abdominal pain and leukocytosis and ultrasound of the appendix was also ordered, a review of this ultrasound reveals no free fluid and no evidence of acute appendicitis Results were discussed with the patient. I advised her at this time the next step in workup would be a pelvic exam. Patient had already put on her jeans and was requesting discharge home. She states that she has no concern for sexually transmitted infection is not experiencing any vaginal discharge. She doesn't feel she needs a pelvic exam at this time. Patient states that she feels reassured that her ultrasound revealed a single live intrauterine with a healthy heart rate. She states she feels comfortable being discharged home at this time. I advised the patient the workup was not complete without a pelvic exam however she feels comfortable being discharged home I would advise her to maintain oral hydration and began taking a vitamin daily. I advised patient that her multiple options available [id number] should she not have insurance to pay for it. Patient expressed understanding of this. I advised the patient that she needs to follow up with a primary care provider or Dr. Valdes in 2-3 days for reevaluation. Patient states that due to insurance issues she's not sure she will be able to follow-up. I advised her that should she develop any worsening abdominal pain, fevers, chills, nausea, vomiting, inability to tolerate by mouth or any signs or symptoms that she finds concerning she needs to return to the emergency department immediately for reevaluation. Patient expressed understanding and agreement with this plan. - Lab Data Result diagrams: 11/07/16 18:07 11/07/16 18:07 Lab Results 11/07/16 11/07/16 11/07/16 Range/Units 17:46 18:07 18:07 WBC 21.1 H (3.8-10.6) k/uL RBC 3.76 L (3.80-5.40) m/uL Hgb 12.8 (11.4-16.0) gm/dL Hct 35.6 (34.0-46.0) % MCV 94.7 (80.0-100.0) fL MCH 34.2 (25.0-35.0) pg MCHC 36.0 (31.0-37.0) g/dL RDW 13.7 (11.5-15.5) % Plt Count 270 (150-450) k/uL Neutrophils % 75 % Lymphocytes % 19 % Monocytes % 3 % Eosinophils % 1 % Basophils % 0 % Neutrophils # 15.7 H (1.3-7.7) k/uL Lymphocytes # 4.1 (1.0-4.8) k/uL Monocytes # 0.7 (0-1.0) k/uL Eosinophils # 0.1 (0-0.7) k/uL Basophils # 0.1 (0-0.2) k/uL Sodium 135 L (137-145) mmol/L Potassium 4.0 (3.5-5.1) mmol/L Chloride 106 (98-107) mmol/L Carbon Dioxide 19 L (22-30) mmol/L Anion Gap 10 mmol/L BUN 9 (7-17) mg/dL Creatinine 0.50 L (0.52-1.04) mg/dL Est GFR (MDRD) Af Amer >60 (>60 ml/min/1.73 sqM) Est GFR (MDRD) Non-Af >60 (>60 ml/min/1.73 sqM) Glucose 72 L (74-99) mg/dL Calcium 9.6 (8.4-10.2) mg/dL Total Bilirubin 0.2 (0.2-1.3) mg/dL AST 14 (14-36) U/L ALT 26 (9-52) U/L Alkaline Phosphatase 71 (38-126) U/L Total Protein 6.3 (6.3-8.2) g/dL Albumin 3.9 (3.5-5.0) g/dL Urine Color Yellow Urine Appearance Clear (Clear) Urine pH 6.5 (5.0-8.0) Ur Specific [place] 1.015 (1.001-1.035) Urine Protein Negative (Negative) Urine Glucose (UA) Negative (Negative) Urine Ketones Negative (Negative) Urine Blood Negative (Negative) Urine Nitrite Negative (Negative) Urine Bilirubin Negative (Negative) Urine Urobilinogen <2.0 (<2.0) mg/dL Ur Leukocyte Esterase Negative (Negative) Disposition Clinical Impression: Abdominal pain affecting , Leukocytosis Disposition: HOME SELF-CARE Condition: Good Instructions: Abdominal Pain in (ED) Referrals: Flaquito Dunlap MD [Primary Care Provider] - 1-2 days Za Valdes DO [Doctor of Osteopathic Medicine] - 1-2 days
[2016-11-07 17:55] LABS: Appearance,Urine Clear (Clear); Bilirubin,Urine Negative (Negative); Glucose,Urine (UA) Negative (Negative); Ketones,Urine Negative (Negative); Leukocyte Esterase,Urine Negative (Negative); Nitrite,Urine Negative (Negative); PH, Urine 6.5 (5.0-8.0); Protein,Urine Negative (Negative); Specific Gravity,Urine 1.015 (1.001-1.035); UA Billing (MACRO vs. MICRO) CHEM; Urobilinogen,Urine <2.0 mg/dL (<2.0)
[2016-11-07 18:18] LABS: Basophils # (A) 0.1 k/uL (0-0.2); Basophils % (A) 0 %; CH 35.2; CHCM 37.4; Eosinophils # (A) 0.1 k/uL (0-0.7); Eosinophils % (A) 1 %; HCT 35.6 % (34.0-46.0); HDW 2.58; HGB 12.8 gm/dL (11.4-16.0); Luc # (Auto) 0.35; Luc % (Auto) 2; Lymphocytes # (A) 4.1 k/uL (1.0-4.8); Lymphocytes % (A) 19 %; MCH 34.2 pg (25.0-35.0); MCV 94.7 fL (80.0-100.0); Mean Platelet Volume 7.6; Monocytes # (A) 0.7 k/uL (0-1.0); Monocytes % (A) 3 %; Neutrophils # (A) 15.7 k/uL (1.3-7.7); Neutrophils % (A) 75 %; RBC 3.76 m/uL (3.80-5.40); RDW 13.7 % (11.5-15.5); WBC 21.1 k/uL (3.8-10.6); WBC (Perox) 21.11
[2016-11-07 18:31] LABS: ALT 26 U/L (9-52); AST 14 U/L (14-36); Alkaline Phosphatase 71 U/L (38-126); Anion Gap 10 mmol/L; Blood Urea Nitrogen 9 mg/dL (7-17); Calcium 9.6 mg/dL (8.4-10.2); Carbon Dioxide 19 mmol/L (22-30); Chloride 106 mmol/L (98-107); Glucose 72 mg/dL (74-99); Non-African American GFR(MDRD) >60 (>60 ml/min/1.73 sqM); Sodium 135 mmol/L (137-145); Total Bilirubin 0.2 mg/dL (0.2-1.3); Total Protein 6.3 g/dL (6.3-8.2)
--- NOTE | 2016-11-07 19:10 | US ---
EXAMINATION TYPE: US OB <= 14 wk fetus DATE OF EXAM: 11/07/2016 COMPARISON: NONE CLINICAL HISTORY: Pain. EXAM PERFORMED: 11/07/2016 EXAM MEASUREMENTS: GESTATIONAL AGE / DATING Physician Established: (14 weeks/0 days) EDC: 05/08/16 Dates by LMP: unknown Dates by First Scan: (14 weeks/0 days) EDC: 05/08/16 Dates by Current Scan for: (14 weeks/0 days) EDC: 05/08/16 MATERNAL ANATOMY Uterus: 15.3 x 7.1 x 11.8cm Right Ovary: obscured by bowel gas, increased uterine size Left Ovary: 2.5 x 1.5 x 1.8cm Post CDS / Adnexa: wnl Presence of free fluid: no GESTATION / SURVEY CRL: 8.0 (14 weeks/0 days) Yolk Sac (normal less than 6mm): not seen Heart Rate: 161 bpm Rhythm: Normal IUP: Viable IUP Cervix: 3.0cm Date of LMP: unknown Beta HcG (if available): not available IMPRESSION: 14 week 0 day gestation is noted with a heart rate of 161 bpm.
--- NOTE | 2016-11-07 19:30 | US ---
EXAMINATION TYPE: US abdomen APPY DATE OF EXAM: 11/07/2016 COMPARISON: NONE CLINICAL HISTORY: Pain. APPENDIX AP Diameter (normal < 6mm): 3 mm Measured outer wall to outer wall. Is the appendix seen in its entirety from the proximal cecum to distal end: no Is the appendix compressible: yes Does the appendix wall appear hypervascular: no Is an appendicolith present: no Is there inflammatory changes or free fluid present: no A linear tubular structure which is compressible and nondilated is identified which is felt to be the appendix. There is no free fluid or adjacent lymphadenopathy. IMPRESSION: No sonographic findings to suggest acute appendicitis.
[2016-11-07 20:22] VITALS: BP 122/83; PULSE 75; RESP 16; TEMP 98.5
== END 2016-11-07 20:20 | disposition home or self-care (01) ==
LOC: EC 16:47
DX: O99.89 Other specified diseases and conditions complicating pregnancy, childbirth and the puerperium (principal); R10.30 Lower abdominal pain, unspecified; O99.112 Other diseases of the blood and blood-forming organs and certain disorders involving the immune mechanism complicating pregnancy, second trimester; D72.829 Elevated white blood cell count, unspecified; O99.332 Smoking (tobacco) complicating pregnancy, second trimester; F17.200 Nicotine dependence, unspecified, uncomplicated; Z98.890 Other specified postprocedural states; Z3A.15 15 weeks gestation of pregnancy; Z88.8 Allergy status to other drugs, medicaments and biological substances
CPT/HCPCS: 36415; 76705; 76801; 80053; 81003; 85025; 87086; 99284

== ENCOUNTER 2017-03-30 18:36 | Outpatient (CLI) | payer OTHER ==
[2017-03-30 18:57] VITALS: BP 111/63; PULSE 82; RESP 16; TEMP 97.4
--- NOTE | 2017-03-31 08:34 | P.MSEPDOC ---
Presenting Problems - Arrival Data Date of Arrival on Unit: 03/30/17 Time of Arrival on Unit: 18:33 Mode of Transport: Wheelchair - Complaint OB-Reason for Admission/Chief Complaint: Possible Onset of Labor Comment: pt states contractions since 1500 today Medical History - Information : 3 Para: 2 Term: 2 : 0 Abortions: Spontaneous or Elective: 0 Number of Living Children: 2 - Gestational Age Gestational Age by JASMEET (wks/days): 33 Weeks and 5 Days - History Complications: Prior Review of Systems - Review of Systems Constitutional: No problems Breast: No problems ENT: No problems Cardiovascular: No problems Respiratory: No problems Gastrointestinal: No problems Genitourinary: No problems Musculoskeletal: No problems Neurological: No problems Skin: No problems Vital Signs - Temperature Temperature: 97.4 F Temperature Source: Oral - Pulse Right Brachial Pulse Rate: 82 Pulse Assessment Method: Automatic Cuff - Respirations Respiratory Rate: 16 Oxygen Delivery Method: Room Air O2 Sat by Pulse Oximetry: 99 - Blood Pressure Right Arm Blood Pressure: 111/63 Blood Pressure Mean: 79 Blood Pressure Source: Automatic Cuff Medical Screen Scoring (Pre) - Cervical Exam Dilation: 0 cm = 0 - Uterine Contractions Frequency: > 5 minutes apart = 1 Duration: N/A Intensity: N/A - Maternal Vital Signs Maternal Temperature: N/A Signs of Preeclampsia: N/A Maternal Respirations: N/A - Pain Assessment Pain Location and Character: Lower, Abdomen Pain Scale Used: Numeric (1 - 10) Pain Intensity: 6 Pain Management Goal: 2 Pain Description: Cramping Pain Frequency: Intermittent Pain Duration Units: Minutes Pain Behavior: Facial Grimacing Non-Pharmacological Interventions: Position/Reposition - Assessment Baseline FHR: 135 Heart Rate - NICHD Category: Category I (Normal) = 0 NST: Reactive Position: N/A Station: N/A - Total Score Total Score (Pre): 1 - Level of Risk Level of Risk: Low (0-5) Physician Notification (Post) - Physician Notified Physician Notified Date: 03/30/17 Physician Notified Time: 19:11 Physician/Practitioner Notified:: Vik Spoke With: Vik New Order Received: Yes - Notification Comment Comment: discharge order received Disposition - Disposition OB Disposition: Discharge to home Discharge Date: 03/30/17 Discharge Time: 19:19 I agree with the RN Medical Screening Exam: Yes Risk & Benefit of care provided described in d/c instruction: Yes Diagnosis: FALSE LABOR BEFORE 37 COMPLETED WEEKS OF GEST, THIRD TRI
== END 2017-03-30 19:19 | disposition home or self-care (01) ==
LOC: FBPOP 18:36
PROVIDERS: ATTEND Obstetrics & Gynecology
DX: O47.03 False labor before 37 completed weeks of gestation, third trimester (principal); Z3A.33 33 weeks gestation of pregnancy
CPT/HCPCS: 59025; G0463; 99213

== ENCOUNTER 2017-05-03 06:01 | Inpatient (IN) | payer OTHER ==
[2017-05-02 15:58] VITALS: BMI 28.5
[2017-05-03] MEDS ORDERED: CITRIC ACID-SODIUM CITRATE 15 ML CUP PO ONE (06:10)
[2017-05-03] MEDS ORDERED: LACTATED RINGERS 1,000 ML IV ONE (06:10)
[2017-05-03] MEDS ORDERED: LACTATED RINGERS 1,000 ML IV SCH (06:15)
[2017-05-03] MEDS ORDERED: ceFAZolin IN SWFI 2 GM/20 ML SYRINGE IVP STA (06:33)
[2017-05-03 07:03] LABS: Basophils % (A) 0 %; Eosinophils # (A) 0.2 k/uL (0-0.7); Eosinophils % (A) 1 %; HCT 33.1 % (34.0-46.0); HGB 11.6 gm/dL (11.4-16.0); Lymphocytes # (A) 4.2 k/uL (1.0-4.8); Lymphocytes % (A) 29 %; MCH 33.5 pg (25.0-35.0); MCHC 35.1 g/dL (31.0-37.0); MCV 95.5 fL (80.0-100.0); Mean Platelet Volume 8.3; Monocytes # (A) 0.7 k/uL (0-1.0); Monocytes % (A) 5 %; Neutrophils # (A) 9.2 k/uL (1.3-7.7); Neutrophils % (A) 63 %; Platelet Count 284 k/uL (150-450); RBC 3.47 m/uL (3.80-5.40); RDW 12.8 % (11.5-15.5); WBC 14.7 k/uL (3.8-10.6)
[2017-05-03] MEDS ORDERED: OXYTOCIN 10 UNIT/ML 1 ML VIAL ONE (07:58)
[2017-05-03] MEDS ORDERED: KETOROLAC 30 MG/ML 1 ML VIAL ONE (07:58)
[2017-05-03] MEDS ORDERED: DEXAMETHASONE SOD PHOS (MDV) 100 MG/10 ML VIAL ONE (07:58)
[2017-05-03] MEDS ORDERED: ONDANSETRON 4 MG/2 ML VIAL ONE (07:58)
[2017-05-03] MEDS ORDERED: MORPHINE SULFATE (PF) 0.3 MG/0.3 ML SYR ONE (07:58)
[2017-05-03] MEDS ORDERED: ePHEDrine SULFATE/0.9% NACL/PF 50 MG/5 ML SYRINGE IV ONE (07:58)
[2017-05-03] MEDS ORDERED: PHENYLEPHRINE-0.9% NACL SYG 1 MG/10 ML SYRINGE ONE (07:58)
[2017-05-03] MEDS ORDERED: NALBUPHINE 10 MG/ML AMPUL ONE (07:58)
[2017-05-03] MEDS ORDERED: MORPHINE SULFATE 4 MG/ML SYRINGE IVP PRN (08:26)
[2017-05-03] MEDS ORDERED: NALOXONE 0.4 MG/ML 1 ML VIAL IV PRN (08:26)
[2017-05-03] MEDS ORDERED: diphenhydrAMINE 50 MG/ML 1 ML VIAL IVP PRN ×3 (08:26→08:42)
[2017-05-03] MEDS ORDERED: METOCLOPRAMIDE 5 MG/ML 2 ML VIAL IVP PRN (08:42)
[2017-05-03] MEDS ORDERED: SIMETHICONE 80 MG CHEWABLE PO PRN (08:42)
[2017-05-03] MEDS ORDERED: LANOLIN CREAM 5 GM TUBE TOPICAL PRN (08:42)
[2017-05-03] MEDS ORDERED: Acetaminophen-Codeine 300-30mg TAB PO PRN ×2 (08:42)
[2017-05-03] MEDS ORDERED: IBUPROFEN 600 MG TAB PO PRN (08:42)
[2017-05-03] MEDS ORDERED: ZOLPIDEM 5 MG TAB PO PRN (08:42)
[2017-05-03] MEDS ORDERED: ACETAMINOPHEN TAB 325 MG TAB PO PRN (08:42)
[2017-05-03] MEDS ORDERED: diphenhydrAMINE 25 MG CAP PO PRN (08:42)
[2017-05-03] MEDS ORDERED: diphenhydrAMINE 50 MG CAP PO PRN (08:42)
[2017-05-03] MEDS ORDERED: Rhogam IMMUNE GLOBULIN 1,500 UNIT/1 ML IM ONE (08:42)
[2017-05-03] MEDS ORDERED: OXYTOCIN 20 UNITS/1000 ML NS 1,000 ML IV SCH (08:45)
[2017-05-03] MEDS: LACTATED RINGERS 1,000 ML IV SCH ×2 (10:57→18:42)
[2017-05-03] MEDS: ONDANSETRON 4 MG/2 ML VIAL IVP PRN ×2 (12:16→18:28)
--- NOTE | 2017-05-03 17:29 | P.HPOB ---
History of Present Illness H&P Date: 05/03/17 Chief Complaint: RLTCS with TL 22-year-old presents at 39 weeks and 2 days for repeat low transverse C- section with tubal ligation. Review of Systems All systems: negative Constitutional: Denies chills, Denies fever Eyes: denies blurred vision, denies pain Ears, nose, mouth and throat: Denies headache, Denies sore throat Cardiovascular: Denies chest pain, Denies shortness of breath Respiratory: Denies cough Gastrointestinal: Denies abdominal pain, Denies diarrhea, Denies nausea, Denies vomiting Genitourinary: Denies dysuria, Denies hematuria Musculoskeletal: Denies myalgias Integumentary: Denies pruritus, Denies rash Neurological: Denies numbness, Denies weakness Psychiatric: Denies anxiety, Denies depression Endocrine: Denies fatigue, Denies weight change Past Medical History Past Medical History: GERD/Reflux Additional Past Medical History / Comment(s): gallstones, HSV. Obstetric history: She had 2 previous sections. This is her third . She's had care with me since 24 weeks. Blood type is AB negative, rubella immune, RPR nonreactive, hepatitis B-. RhoGAM given 03/10/2017. Normal anatomy ultrasound. History of Any Multi-Drug Resistant Organisms: None Reported Past Surgical History: Section Past Anesthesia/Blood Transfusion Reactions: Postoperative Nausea & Vomiting ( PONV) Past Psychological History: Anxiety Smoking Status: Current every day smoker Past Alcohol Use History: None Reported Additional Past Alcohol Use History / Comment(s): smoker since age 14 1/2ppd Past Drug Use History: Marijuana Additional Drug Use History / Comment(s): occasional not very often-LAST USED ABOUT 1 MONTH AGO - Past Family History Mother Family Medical History: Fibromyalgia, Hypertension Additional Family Medical History / Comment(s): heart problems unknown Medications and Allergies Home Medications Medication Instructions Recorded Confirmed Type No Known Home Medications [No 11/07/16 05/02/17 History Known Home Medications] Allergies Allergy/AdvReac Type Severity Reaction Status Date / Time metoclopramide HCl AdvReac PANICK Verified 05/02/17 15:54 [From Reglan] ATTACKS morphine AdvReac Nausea & Verified 05/02/17 15:54 Vomiting Exam Osteopathic Statement: *. No significant issues noted on an osteopathic structural exam other than those noted in the History and Physical/Consult. - Vital Signs Vital signs: Vital Signs Temp Pulse Resp BP Pulse Ox 05/03/17 17:00 16 97 05/03/17 16:00 97.8 F 67 16 104/57 05/03/17 15:00 16 05/03/17 13:27 98 05/03/17 13:00 16 05/03/17 12:00 97.4 F L 61 16 105/58 05/03/17 11:27 16 05/03/17 10:40 97.5 F L 68 16 92/55 05/03/17 10:19 59 L 14 108/58 05/03/17 09:49 108 H 16 116/55 05/03/17 09:28 115 H 16 119/67 05/03/17 09:27 16 99 05/03/17 09:14 85 16 113/69 05/03/17 09:03 110 H 16 134/59 05/03/17 08:49 97.0 F L 100 16 124/60 05/03/17 08:27 97 05/03/17 06:15 96.9 F L 74 16 117/69 100 Intake and Output 05/03/17 05/03/17 05/03/17 06:59 14:59 22:59 Intake Total 700 Output Total 500 200 Balance -500 500 Intake: IV 700 Lactated Ringers 1,000 ml 700 @ 125 mls/hr IV .Q8H [facility] Rx#:[id number] Output: Urine 300 200 Emesis 200 Other: Voiding Method Indwelling Catheter Indwelling Catheter Weight 70.76 kg Heart: Regular rate and rhythm Lungs: Clear to auscultation bilaterally Abdomen: Soft, nontender Extremities: Negative Homans sign Results Result Diagrams: 05/03/17 06:30 Abnormal Lab Results - Last 24 Hours (Table) 05/03/17 Range/Units 06:30 WBC 14.7 H (3.8-10.6) k/uL RBC 3.47 L (3.80-5.40) m/uL Hct 33.1 L (34.0-46.0) % Neutrophils # 9.2 H (1.3-7.7) k/uL Assessment and Plan (1) Previous section Current Visit: No Status: Resolved Code(s): Z98.891 - HISTORY OF UTERINE SCAR FROM PREVIOUS SURGERY SNOMED Code(s): 134214351 (2) Family planning Current Visit: Yes Status: Acute Code(s): Z30.09 - ENCOUNTER FOR OTH GENERAL CNSL AND ADVICE ON CONTRACEPTION SNOMED Code(s): 402398459 Plan: 1. Repeat low transverse with tubal ligation
--- NOTE | 2017-05-03 17:33 | P.OP ---
Date of Procedure: 05/03/17 Preoperative Diagnosis: 1. at 39 weeks and 2 days 2. Previous section 3. Family planning Postoperative Diagnosis: 1. at 39 weeks and 2 days 2. Previous section 3. Family planning Procedure(s) Performed: Repeat low transverse with tubal ligation Anesthesia: spinal Surgeon: Za Valdes Practice Consultant #1: Peng Minaya Estimated Blood Loss (ml): 500 IV fluids (ml): 800 Urine output (ml): 600 Pathology: other (Placenta) Condition: stable Disposition: floor Operative Findings: Viable female, Apgars 9, 9, weight 5 lbs. 11 oz. Description of Procedure: Patient was taken to the operating room where spinal anesthesia was found be adequate. She was prepped and draped in normal sterile fashion in dorsal supine position with a leftward tilt. Pfannenstiel skin incision was made the scalpel and carried through to the underlying layer of fascia with the scalpel. Fascia was incised in midline and carried bilaterally with the Sheets scissors. The superior aspect of the fascial incision was grasped with Trish clamps elevated and the underlying rectus muscles dissected off with the Sheets's. Attention was then turned to inferior aspect of same incision which in a similar fashion was grasped tented up and the underlying rectus muscles dissected off with the Sheets's. The rectus muscles were the midline and the peritoneum was identified tented up and entered sharply with the scalpel. The incision was extended superiorly and inferiorly with good visualization of the bladder. The bladder blade was inserted and the vesicouterine peritoneum was incised the Metzenbaums then carried bilaterally and bladder flap created digitally. A low transverse incision was then made on the uterus with the scalpel. This was carried bilaterally and digital manner. Infant's head delivered atraumatically, nose and mouth bulb suctioned, cord clamped and cut, infant handed off to waiting nurses. Apgars 9,9, weight 5 lbs. 11 oz. Placenta delivered manually, intact with three-vessel cord. The uterus is exteriorized and cleared of all clots and debris. The uterine incision was closed with 0 Vicryl in a running locked fashion. Bladder flap was then reapproximated using 2-0 Vicryl in a running fashion. Both ovaries and tubes appeared normal. The right fallopian tube was grasped with a hemostat and a window was made in the mesosalpinx. The right fallopian tube was doubly ligated and a segment was removed. The pedicles were cauterized with the Bovie. The left fallopian tube was grasped with a hemostat and a window was made in the mesosalpinx with the Bovie. The left fallopian tube was doubly ligated with 0 Vicryl and a segment was removed with the Metzenbaums. The pedicles were cauterized with the Bovie. The uterus was placed back into the abdomen. The peritoneum was reapproximated using 2-0 Vicryl in a running fashion. The muscles were reapproximated using 2-0 Vicryl in interrupted fashion. The fascia was reapproximated using 0 Vicryl in a running fashion. The subcutaneous tissues closed with 3-0 Vicryl running fashion. The skin was closed leigh. Patient tolerated the procedure well, sponge and instrument counts were correct times 2 and she was taken to the recovery room in stable condition.
[2017-05-03] MEDS ORDERED: MEASLES-MUMPS-RUBELLA VACC/PF 12,500 UNIT/0.5 ML VIAL SQ ONE (17:54)
[2017-05-03] MEDS: SENNOSIDES-DOCUSATE SODIUM 1 EACH TAB PO SCH (22:10)
[2017-05-04 07:36] LABS: Basophils % (A) 0 %; Eosinophils # (A) 0.1 k/uL (0-0.7); Eosinophils % (A) 1 %; HCT 28.7 % (34.0-46.0); Lymphocytes # (A) 4.2 k/uL (1.0-4.8); Lymphocytes % (A) 27 %; MCH 33.6 pg (25.0-35.0); MCHC 34.3 g/dL (31.0-37.0); MCV 97.8 fL (80.0-100.0); Mean Platelet Volume 8.1; Monocytes # (A) 0.7 k/uL (0-1.0); Monocytes % (A) 5 %; Neutrophils % (A) 65 %; Platelet Count 283 k/uL (150-450); RBC 2.93 m/uL (3.80-5.40); RDW 12.8 % (11.5-15.5); WBC 15.3 k/uL (3.8-10.6)
[2017-05-04 07:40] LABS: HGB 9.8 gm/dL (11.4-16.0)
--- NOTE | 2017-05-04 09:32 | P.PNOBGPC ---
Subjective - Subjective Principal diagnosis: S/P RLTCS with TL POD #1 Interval history: Pt seen and examined. Denies N/V, F/C, CP, SOB, calf pain. Patient reports: Reports appetite normal, Reports voiding normally, Reports pain well controlled, Reports ambulating normally [place]: doing well Objective - Vital Signs Latest vital signs: Vital Signs Temp Pulse Resp BP Pulse Ox 05/04/17 04:15 97.8 F 62 14 102/72 05/04/17 00:04 98.1 F 75 16 113/66 98 05/03/17 20:00 97.9 F 54 L 15 94/69 98 05/03/17 17:00 16 97 05/03/17 16:00 97.8 F 67 16 104/57 05/03/17 15:00 16 05/03/17 13:27 98 05/03/17 13:00 16 05/03/17 12:00 97.4 F L 61 16 105/58 05/03/17 11:27 16 05/03/17 10:40 97.5 F L 68 16 92/55 05/03/17 10:19 59 L 14 108/58 05/03/17 09:49 108 H 16 116/55 Intake and Output 05/03/17 05/04/17 05/04/17 22:59 06:59 14:59 Intake Total 700 Output Total 200 600 Balance 500 -600 Intake: IV 700 Lactated Ringers 1,000 ml 700 @ 125 mls/hr IV .Q8H [facility] Rx#:[id number] Output: Urine 200 600 Uretheral (Hoffmann) 600 Other: Voiding Method Indwelling Catheter - Exam Lungs: bilateral: normal Chest: Normal S1, Normal S2 Extremities: Present: normal Abdomen: Present: normal appearance, soft. Absent: distention, tenderness Incision: Present: normal, dry, intact Uterus: Present: normal, firm - Labs Labs: Abnormal Lab Results - Last 24 Hours (Table) 05/04/17 Range/Units 07:02 WBC 15.3 H (3.8-10.6) k/uL RBC 2.93 L (3.80-5.40) m/uL Hgb 9.8 L D (11.4-16.0) gm/dL Hct 28.7 L (34.0-46.0) % Neutrophils # 10.0 H (1.3-7.7) k/uL Assessment and Plan (1) Family planning Current Visit: Yes Status: Resolved Code(s): Z30.09 - ENCOUNTER FOR OTH GENERAL CNSL AND ADVICE ON CONTRACEPTION SNOMED Code(s): 026913412 (2) Status post repeat low transverse section Current Visit: No Status: Acute Code(s): Z98.891 - HISTORY OF UTERINE SCAR FROM PREVIOUS SURGERY SNOMED Code(s): 718434169 (3) Status post tubal ligation Current Visit: Yes Status: Acute Code(s): Z98.51 - TUBAL LIGATION STATUS SNOMED Code(s): 20363284215713 Plan: 1. increase ambulation 2. reg diet
[2017-05-04] MEDS: SENNOSIDES-DOCUSATE SODIUM 1 EACH TAB PO SCH ×2 (09:38→19:28)
[2017-05-04] MEDS: KETOROLAC 30 MG/ML 1 ML VIAL IVP PRN ×2 (10:33→18:17)
--- NOTE | 2017-05-04 12:01 | P.PN ---
Progress Note - Text Progress Note Date: 05/04/17 Postoperative day 1 status post section under spinal anesthesia and intrathecal Duramorph for postoperative analgesia.The patient is doing well, there is mild generalized skin itching. There are no other anesthesia related complications. Further management as per the patient primary team.
[2017-05-04] MEDS ORDERED: PSEUDOEPHEDRINE 30 MG TAB PO PRN (13:24)
[2017-05-04] MEDS ORDERED: DIPH,PERTUS(ACELL)TETVAC-LF 0.5 ML VIAL IM ONE (16:37)
[2017-05-05] MEDS: KETOROLAC 30 MG/ML 1 ML VIAL IVP PRN (02:21)
[2017-05-05] MEDS: LACTATED RINGERS 1,000 ML IV SCH (06:51)
--- NOTE | 2017-05-05 07:49 | P.DS ---
Providers Date of admission: 05/03/17 06:01 Expected date of discharge: 05/05/17 Attending physician: Za Valdes Primary care physician: Stated None - Discharge Diagnosis(es) (1) Family planning Current Visit: Yes Status: Resolved (2) Status post repeat low transverse section Current Visit: No Status: Acute (3) Status post tubal ligation Current Visit: Yes Status: Acute Hospital Course: Patient presented for repeat low transverse with tubal ligation. She underwent this procedure without complication. Her post operative course was uneventful. Her pain is well-controlled with Motrin and Tylenol 3. Her incision is clean, dry, intact. She will be discharged home postoperative day # 2 in stable condition to follow-up with me in one week. Plan - Discharge Summary Discharge Rx Participant: Yes New Discharge Prescriptions: New Acetaminophen-Codeine 300-30mg [Tylenol w/codeine #3] 1 - 2 each PO Q4HR PRN #30 tab PRN Reason: Moderate To Severe Pain Ibuprofen [Motrin] 600 mg PO Q6HR PRN #30 tab PRN Reason: Mild Pain Or Fever >= 100.5 Discharge Medication List Acetaminophen-Codeine 300-30mg [Tylenol w/codeine #3] 1 - 2 each PO Q4HR PRN # 30 tab 05/05/17 [Rx] Ibuprofen [Motrin] 600 mg PO Q6HR PRN #30 tab 05/05/17 [Rx] Follow up Appointment(s)/Referral(s): Za Valdes DO [Doctor of Osteopathic Medicine] - 1 Week
[2017-05-05] MEDS: SENNOSIDES-DOCUSATE SODIUM 1 EACH TAB PO SCH (07:50)
[2017-05-05 08:42] VITALS: BP 115/73; PULSE 64; RESP 18; TEMP 97.9
== END 2017-05-05 13:30 | disposition home or self-care (01) | DRG 766 ==
LOC: 4FBP 06:01
PROVIDERS: ADMIT Obstetrics & Gynecology; ATTEND Obstetrics & Gynecology
PROC: 0UB70ZZ Excision of Bilateral Fallopian Tubes, Open Approach (ICD-10-PCS; 2017-05-03)
PROC: 10D00Z1 Extraction of Products of Conception, Low, Open Approach (ICD-10-PCS; principal; 2017-05-03 08:00)
PROC: 3E0234Z Introduction of Serum, Toxoid and Vaccine into Muscle, Percutaneous Approach (ICD-10-PCS; 2017-05-04)
DX: O34.211 Maternal care for low transverse scar from previous cesarean delivery (principal); F41.9 Anxiety disorder, unspecified; O99.344 Other mental disorders complicating childbirth; O99.334 Smoking (tobacco) complicating childbirth; K21.9 Gastro-esophageal reflux disease without esophagitis; O99.62 Diseases of the digestive system complicating childbirth; Z37.0 Single live birth; Z3A.39 39 weeks gestation of pregnancy; Z87.19 Personal history of other diseases of the digestive system; Z88.5 Allergy status to narcotic agent; Z88.8 Allergy status to other drugs, medicaments and biological substances; Z86.19 Personal history of other infectious and parasitic diseases; Z82.49 Family history of ischemic heart disease and other diseases of the circulatory system; Z23 Encounter for immunization
CPT/HCPCS: 85025; 86850; 86870; 86880; 86900; 86901; 88302; 88307; 90471; 90472; 90707; 90715

== ENCOUNTER 2017-10-02 17:21 | Inpatient (IN) | payer OTHER ==
[2017-10-02] MEDS ORDERED: SODIUM CHLORIDE 0.9% 1,000 ML IV STA (19:28)
[2017-10-02] MEDS ORDERED: ACETAMINOPHEN TAB 500 MG TAB PO STA (19:28)
--- NOTE | 2017-10-02 19:38 | ED ---
General Adult HPI <Mohsen Hernandez - Last Filed: 10/02/17 23:11> - General Source: patient, RN notes reviewed Mode of arrival: ambulatory Limitations: no limitations <Sridhar Vazquez - Last Filed: 10/02/17 23:19> - General Chief complaint: Fever Stated complaint: fever, vomiting, abd pain Time Seen by Provider: 10/02/17 19:17 - History of Present Illness Initial comments: A 2-year-old female presents to the emergency department for a chief complaint of fever 2 days. Patient states she feels achy all over. Patient states her lower abdomen has been hurting mostly on the left side. Patient denies any urinary symptoms such as burning with urination. Patient denies any vaginal discharge. Patient states she has vomited only a few times no diarrhea. Patient has not taken Motrin or Tylenol. Patient admits to a cough that started 2 days ago. Patient denies a history of asthma. Patient denies congestion. Patient admits to ear pain which she has chronically but states it is worse than normal especially in the left ear. Patient has no other complaints at this time including shortness of breath, chest pain, abdominal pain, nausea or vomiting, headache, or visual changes. (Sridhar Vazquez) - Related Data Home Medications Medication Instructions Recorded Confirmed No Known Home Medications 10/02/17 10/02/17 Allergies Allergy/AdvReac Type Severity Reaction Status Date / Time metoclopramide HCl AdvReac PANICK Verified 10/02/17 20:01 [From Reglan] ATTACKS morphine AdvReac Nausea & Verified 10/02/17 20:01 Vomiting Review of Systems ROS Other: All systems not noted in ROS Statement are negative. <Mohsen Hernandez - Last Filed: 10/02/17 23:11> ROS Other: All systems not noted in ROS Statement are negative. <Sridhar Vazquez - Last Filed: 10/02/17 23:19> ROS Statement: Those systems with pertinent positive or pertinent negative responses have been documented in the HPI. Past Medical History Past Medical History: GERD/Reflux Additional Past Medical History / Comment(s): gallstones, HSV. hepatitis B- History of Any Multi-Drug Resistant Organisms: None Reported Past Surgical History: Section Past Anesthesia/Blood Transfusion Reactions: Postoperative Nausea & Vomiting ( PONV) Past Psychological History: Anxiety Smoking Status: Current every day smoker Past Alcohol Use History: None Reported Past Drug Use History: None Reported, Marijuana - Past Family History Mother Family Medical History: Fibromyalgia, Hypertension Additional Family Medical History / Comment(s): heart problems unknown <Sridhar Vazquez - Last Filed: 10/02/17 23:19> General Exam Limitations: no limitations General appearance: alert, in no apparent distress Head exam: Present: atraumatic, normocephalic, normal inspection Eye exam: Present: normal appearance, PERRL, EOMI. Absent: scleral icterus, conjunctival injection, periorbital swelling ENT exam: Present: normal exam, normal oropharynx (Uvula midline, no tonsillar exudates noted bilaterally.), mucous membranes moist, TM's normal bilaterally, normal external ear exam Neck exam: Present: normal inspection, full ROM (Full flexion and extension and rotation without pain). Absent: tenderness, meningismus (Negative Kernig and negative Brudzinski), lymphadenopathy Respiratory exam: Present: normal lung sounds bilaterally. Absent: respiratory distress, wheezes, rales, rhonchi, stridor Cardiovascular Exam: Present: regular rate, normal rhythm, normal heart sounds. Absent: systolic murmur, diastolic murmur, rubs, gallop, clicks GI/Abdominal exam: Present: soft, tenderness (Generalized abdominal tenderness with worse tenderness in the left lower quadrant), normal bowel sounds. Absent : distended, guarding, rebound, rigid Neurological exam: Present: alert, oriented X3, CN II-XII intact, normal gait Psychiatric exam: Present: normal affect, normal mood <Sridhar Vazquez - Last Filed: 10/02/17 23:19> Course <Mohsen Hernandez - Last Filed: 10/02/17 23:11> <Sridhar Vazquez - Last Filed: 10/02/17 23:19> Vital Signs 10/02/17 10/02/17 10/02/17 17:53 21:25 22:01 Temperature 103.0 F H 98.9 F 98.7 F Pulse Rate 103 H 67 Respiratory 18 18 Rate Blood Pressure 121/75 104/55 O2 Sat by Pulse 100 99 Oximetry - Reevaluation(s) Reevaluation #1: 10/02/17 23:11 Patient does meet sepsis criteria diagnosed at 2311. Blood culture and lactic acid and IV antibiotics have all been ordered. (Mohsen eHrnandez) Medical Decision Making - Lab Data Result diagrams: 10/02/17 19:30 10/02/17 19:30 <Mohsen Hernandez - Last Filed: 10/02/17 23:11> - Lab Data Result diagrams: 10/02/17 19:30 10/02/17 19:30 <Sridhar Vazquez - Last Filed: 10/02/17 23:19> - Medical Decision Making Patient reevaluated by myself, Dr. Hernandez. Have reviewed and agree with PA findings including diagnostic interpretations and treatment plan. Abdomen soft and nontender. Mild discomfort left CVA region. Patient is updated on results and plan. Patient does meet sepsis criteria. Case was discussed in detail with Dr. Mejia, who will admit for hospital call. (Mohsen Hernandez) 22-year-old female presents to the emergency department for a chief complaint of fever 2 days. Patient states it came on suddenly. Patient complains of body aches and chills. Patient admits to cough 2 days. Patient denies history of asthma. Patient denies shortness of breath. Patient admits to lower abdominal pain and vomiting 3 episodes. Patient denies diarrhea. On exam throat nonerythematous uvula midline. Lungs clear to auscultation bilaterally. Patient does have mild generalized abdominal tenderness worse in the left lower quadrant. CBC shows a white count of 19.7. CO2 16. Urine shows positive nitrites with large leukocyte esterase and over 182 white cells. CXR negative. CT shows left pyelonephritis. No hydronephrosis or hydroureter. Right kidney unremarkable. Patient has a pyelonephritis. On reexamination, patient is feeling better after reducing the fever. Abdominal pain has subsided. She was given fluids and IV Rocephin in the emergency department. She will be admitted for IV antibiotics. (Sridhar Vazquez) - Lab Data Lab Results 10/02/17 10/02/17 10/02/17 Range/Units 19:30 19:30 19:30 WBC 19.7 H (3.8-10.6) k/uL RBC 4.48 (3.80-5.40) m/uL Hgb 13.6 (11.4-16.0) gm/dL Hct 42.1 (34.0-46.0) % MCV 94.0 (80.0-100.0) fL MCH 30.4 (25.0-35.0) pg MCHC 32.4 (31.0-37.0) g/dL RDW 15.5 (11.5-15.5) % Plt Count 226 (150-450) k/uL Neutrophils % (Manual) 75 % Band Neutrophils % 8 % Lymphocytes % (Manual) 14 % Monocytes % (Manual) 3 % Neutrophils # (Manual) 16.30 H (1.3-7.7) k/uL Lymphocytes # (Manual) 2.76 (1.0-4.8) k/uL Monocytes # (Manual) 0.59 (0-1.0) k/uL Nucleated RBCs 0 (0-0) /100 WBC Manual Slide Review Performed Sodium 137 (137-145) mmol/L Potassium 4.1 (3.5-5.1) mmol/L Chloride 108 H (98-107) mmol/L Carbon Dioxide 16 L (22-30) mmol/L Anion Gap 13 mmol/L BUN 13 (7-17) mg/dL Creatinine 0.60 (0.52-1.04) mg/dL Est GFR (CKD-EPI)AfAm >90 (>60 ml/min/1.73 sqM) Est GFR (CKD-EPI)NonAf >90 (>60 ml/min/1.73 sqM) Glucose 82 (74-99) mg/dL Plasma Lactic Acid Fernando 0.9 (0.7-2.0) mmol/L Calcium 9.2 (8.4-10.2) mg/dL Total Bilirubin 0.8 (0.2-1.3) mg/dL AST 17 (14-36) U/L ALT 24 (9-52) U/L Alkaline Phosphatase 91 (38-126) U/L Total Protein 6.9 (6.3-8.2) g/dL Albumin 4.3 (3.5-5.0) g/dL Urine Color Urine Appearance (Clear) Urine pH (5.0-8.0) Ur Specific [place] (1.001-1.035) Urine Protein (Negative) Urine Glucose (UA) (Negative) Urine Ketones (Negative) Urine Blood (Negative) Urine Nitrite (Negative) Urine Bilirubin (Negative) Urine Urobilinogen (<2.0) mg/dL Ur Leukocyte Esterase (Negative) Urine RBC (0-5) /hpf Urine WBC (0-5) /hpf Urine WBC Clumps (None) /hpf Ur Squamous Epith Cells (0-4) /hpf Urine Bacteria (None) /hpf Urine Mucus (None) /hpf Urine HCG, Qual (Not Detectd) Group A Strep Rapid (Negative) 10/02/17 10/02/17 10/02/17 Range/Units 19:30 20:01 20:01 WBC (3.8-10.6) k/uL RBC (3.80-5.40) m/uL Hgb (11.4-16.0) gm/dL Hct (34.0-46.0) % MCV (80.0-100.0) fL MCH (25.0-35.0) pg MCHC (31.0-37.0) g/dL RDW (11.5-15.5) % Plt Count (150-450) k/uL Neutrophils % (Manual) % Band Neutrophils % % Lymphocytes % (Manual) % Monocytes % (Manual) % Neutrophils # (Manual) (1.3-7.7) k/uL Lymphocytes # (Manual) (1.0-4.8) k/uL Monocytes # (Manual) (0-1.0) k/uL Nucleated RBCs (0-0) /100 WBC Manual Slide Review Sodium (137-145) mmol/L Potassium (3.5-5.1) mmol/L Chloride (98-107) mmol/L Carbon Dioxide (22-30) mmol/L Anion Gap mmol/L BUN (7-17) mg/dL Creatinine (0.52-1.04) mg/dL Est GFR (CKD-EPI)AfAm (>60 ml/min/1.73 sqM) Est GFR (CKD-EPI)NonAf (>60 ml/min/1.73 sqM) Glucose (74-99) mg/dL Plasma Lactic Acid Fernando (0.7-2.0) mmol/L Calcium (8.4-10.2) mg/dL Total Bilirubin (0.2-1.3) mg/dL AST (14-36) U/L ALT (9-52) U/L Alkaline Phosphatase (38-126) U/L Total Protein (6.3-8.2) g/dL Albumin (3.5-5.0) g/dL Urine Color Yellow Urine Appearance Turbid H (Clear) Urine pH 6.0 (5.0-8.0) Ur Specific [place] 1.017 (1.001-1.035) Urine Protein 2+ H (Negative) Urine Glucose (UA) Negative (Negative) Urine Ketones 3+ H (Negative) Urine Blood Small H (Negative) Urine Nitrite Positive H (Negative) Urine Bilirubin Negative (Negative) Urine Urobilinogen 4.0 (<2.0) mg/dL Ur Leukocyte Esterase Large H (Negative) Urine RBC 8 H (0-5) /hpf Urine WBC >182 H (0-5) /hpf Urine WBC Clumps Few H (None) /hpf Ur Squamous Epith Cells 12 H (0-4) /hpf Urine Bacteria Many H (None) /hpf Urine Mucus Many H (None) /hpf Urine HCG, Qual Not Detected (Not Detectd) Group A Strep Rapid Negative (Negative) Disposition <Mohsen Hernandez - Last Filed: 10/02/17 23:11> Time of Disposition: 23:08 <Sridhar Vazquez - Last Filed: 10/02/17 23:19> Clinical Impression: Pyelonephritis Disposition: ADMITTED IP TO THIS HOSP Condition: Good Referrals: Flaquito Dunlap MD [STAFF PHYSICIAN] - 1-2 days
[2017-10-02 20:20] LABS: ALT 24 U/L (9-52); AST 17 U/L (14-36); Albumin 4.3 g/dL (3.5-5.0); Alkaline Phosphatase 91 U/L (38-126); Anion Gap 13 mmol/L; Blood Urea Nitrogen 13 mg/dL (7-17); Calcium 9.2 mg/dL (8.4-10.2); Carbon Dioxide 16 mmol/L (22-30); Chloride 108 mmol/L (98-107); Glucose 82 mg/dL (74-99); Potassium 4.1 mmol/L (3.5-5.1); Sodium 137 mmol/L (137-145); Total Bilirubin 0.8 mg/dL (0.2-1.3); Total Protein 6.9 g/dL (6.3-8.2)
[2017-10-02 20:34] LABS: HCT 42.1 % (34.0-46.0); HGB 13.6 gm/dL (11.4-16.0); MCH 30.4 pg (25.0-35.0); MCHC 32.4 g/dL (31.0-37.0); Mean Platelet Volume 7.1; Platelet Count 226 k/uL (150-450); RBC 4.48 m/uL (3.80-5.40); RDW 15.5 % (11.5-15.5); WBC 19.7 k/uL (3.8-10.6)
[2017-10-02 20:49] LABS: Band Neutrophils % 8 %; Lymphocytes # (M) 2.76 k/uL (1.0-4.8); Monocytes # (M) 0.59 k/uL (0-1.0); Neutrophils % (M) 75 %; Nucleated Red Blood Cells 0 /100 WBC (0-0); Total Cells Counted 100
--- NOTE | 2017-10-02 21:03 | XR ---
EXAMINATION: XR chest 2V DATE AND TIME: 10/02/2017 8:46 PM ORDERING PROVIDER: Sridhar Vazquez CLINICAL INDICATION: cough TECHNIQUE: PA and lateral COMPARISON: None. DESCRIPTION: The lungs are clear. The pleural spaces are negative. The cardiac silhouette is not enlarged. The mediastinal and pleural silhouettes are unremarkable. The skeletal structures are intact without focal findings. The soft tissues are unremarkable. IMPRESSION: NO ACUTE PROCESS.
[2017-10-02 21:25] LABS: Appearance,Urine Turbid (Clear); Bacteria,Urine Many /hpf; Bilirubin,Urine Negative (Negative); Blood,Urine Small (Negative); Color,Urine Yellow; Glucose,Urine (UA) Negative (Negative); Ketones,Urine 3+ (Negative); Leukocyte Esterase,Urine Large (Negative); Mucus,Urine Many /hpf; Nitrite,Urine Positive (Negative); Protein,Urine 2+ (Negative); RBC,Urine 8 /hpf (0-5); Specific Gravity,Urine 1.017 (1.001-1.035); Squamous Epithelial Cell,Urine 12 /hpf (0-4); WBC,Urine >182 /hpf (0-5)
[2017-10-02] MEDS ORDERED: KETOROLAC 30 MG/ML 1 ML VIAL IM STA (21:30)
[2017-10-02] MEDS ORDERED: KETOROLAC 30 MG/ML 1 ML VIAL IVP STA (21:37)
[2017-10-02] MEDS ORDERED: cefTRIAXone IN SWFI 2,000 MG/20 ML SYRINGE IVP STA (22:12)
--- NOTE | 2017-10-02 22:22 | CT ---
EXAMINATION TYPE: CT abdomen pelvis w con DATE OF EXAM: 10/02/2017 COMPARISON: 10/06/2013 HISTORY: Lower abdominal pain and nausea x2 days. CT DLP: 440.5 mGycm Automated exposure control for dose reduction was used. TECHNIQUE: Helical acquisition of images was performed from the lung bases through the pelvis. CONTRAST: Performed without Oral Contrast and with IV Contrast, patient injected with 100ml mL of Isovue 300. FINDINGS: KIDNEYS AND URETERS, AND BLADDER: Asymmetric nephrograms are seen, with ill-defined low attenuation i n several spots of the left upper, mid and lower poles and with edematous reticulation throughout the left perirenal space and proximal periureteral adipose. These findings are consistent with pyeloneph ritis there are no associated focal fluid collections or gas collections. There is no left hydronephr osis or left hydroureter. The right kidney and right collecting system and urinary bladder are unrema rkable. LIVER/GB: No significant abnormality is appreciated. PANCREAS: No significant abnormality is seen. SPLEEN: No significant abnormality is seen. ADRENALS: No significant abnormality is seen. PERITONEAL CAVITY: No free air is visualized. No peritoneal fluid. ADENOPATHY: None visualized REPRODUCTIVE ORGANS: No significant abnormality is seen PELVIC ADENOPATHY: None visualized. OSSEOUS STRUCTURES: No significant abnormality is seen. BOWEL: No significant abnormality is seen. VASCULATURE: No acute findings. OTHER: The visualized lung bases and pleural spaces are unremarkable. IMPRESSION: LEFT PYELONEPHRITIS.
[2017-10-02] MEDS ORDERED: NALOXONE 0.4 MG/ML 1 ML VIAL IV PRN (23:03)
[2017-10-02] MEDS ORDERED: ACETAMINOPHEN TAB 325 MG TAB PO PRN (23:03)
[2017-10-03 00:10] VITALS: BMI 25.6
[2017-10-03] MEDS: SODIUM CHLORIDE 0.9% 1,000 ML IV SCH ×5 (00:24→22:50)
[2017-10-03] MEDS: KETOROLAC 30 MG/ML 1 ML VIAL IVP PRN ×3 (05:06→19:06)
[2017-10-03] MEDS ORDERED: cefTRIAXone IN SWFI 1,000 MG/10 ML SYRINGE IVP SCH (11:00)
[2017-10-03] MEDS ORDERED: Acetaminophen-Codeine 300-30mg TAB PO PRN (12:53)
[2017-10-03] MEDS: traMADol 50 MG TAB PO PRN ×2 (13:21→22:49)
[2017-10-03] MEDS: PANTOPRAZOLE 40 MG TABLET PO SCH (16:09)
--- NOTE | 2017-10-03 20:14 | HP ---
HISTORY AND PHYSICAL CHIEF COMPLAINT: A 22-year-old white female with pyelonephritis. HISTORY OF PRESENT ILLNESS: A 22-year-old white female who was admitted to the hospital with pyelonephritis and lower abdominal pain, hurting on her left side to the left flank with vomiting with a cough for few days. No chest pain, nausea, vomiting, diarrhea. CT scan abdomen shows pyelonephritis on the left. MEDICINES: No home medicines. ALLERGIES: MORPHINE, REGLAN. REVIEW OF SYSTEMS: Fourteen point review of systems negative except for mentioned in HPI. PAST MEDICAL HISTORY: GERD, gallstones, hepatitis B, HSV surgery, . Current everyday smoker. No alcohol. No illicit drugs. FAMILY HISTORY: Mother from MRSA, hypertension. Temp is a 103.2 degrees Fahrenheit, max temperature 98.7, pulse is 67-103, respirations 16-18, blood pressure 104-121/65-75, O2 90%-100% on room air. CARDIOVASCULAR: S1, S2. LUNGS: Clear. GI: Soft. Flank pain and left lower quadrant tenderness. NEUROLOGIC: Alert, oriented x3. PSYCH: Fair mood and affect. SKIN: No rash. White count is 19.7, hemoglobin is 13.6. BUN is 13, creatinine 0.6. ASSESSMENT: Acute pyelonephritis. IV Rocephin has been ordered. Await Infectious Disease consultation for further recommendations. MMODL / IJN: [id number] /
[2017-10-03 21:08] VITALS: RESP 16
--- NOTE | 2017-10-04 05:11 | CONS ---
CONSULTATION DATE OF SERVICE: 10/03/2017. REASON FOR CONSULTATION: Left-sided pyelonephritis. HISTORY OF PRESENT ILLNESS: The patient is a 22-year-old female otherwise healthy, presenting to the ER at [facility] yesterday in the evening with chief complaints of fever, abdominal pain and generalized body aches. Symptoms have been going on for about 2 days prior to presentation to hospital. The pain has been mostly in the left flank area, more of a dull aching pain almost 7 to 8/10, and no radiation. The patient has felt nauseated and did vomit twice, but no diarrhea. The patient denies significant burning or frequency of urine. The patient denies any history of recurrent UTI. With these symptoms the patient was evaluated by the ER physician. On arrival to the ER, the patient did have a fever of 103 degrees Fahrenheit. The patient did have elevated white count and did have a significantly positive with large leukocyte esterases. Urine for HCG was negative. Blood culture and urine culture were obtained. The patient did have a CT abdominal pelvis that was suspicious for left-sided pyelonephritis. She was started on Rocephin. Infectious disease was consulted for further recommendation regarding antibiotic therapy. REVIEW OF SYSTEMS: Constitutional: Positive for weakness along with the fever. Eyes no complaint. ENT no complaint. Respiratory no complaint. Cardiovascular no complaint. Genitourinary as per HPI. GASTROINTESTINAL: As per HPI. Musculoskeletal no complaint. Integumentary no complaint. Psychological no complaint. Endocrine no complaint. Neurological no complaint. PAST MEDICAL HISTORY: Significant for hepatitis B, gallstone, gastroesophageal reflux disease, and anxiety. PAST SURGICAL HISTORY: . SOCIAL HISTORY: Positive for smoking. Did admit to marijuana use. No drinking. FAMILY HISTORY: Mother history of fibromyalgia and hypertension. ALLERGIES: TO MORPHINE AND METACHLORPROPAMIDE. MEDICATIONS: The patient is currently on Tylenol, Rocephin, Toradol, Narcan, Protonix and Ultram. EXAMINATION: Her blood pressure is 117/55, pulse of 81, temperature of 98.7. T-max is 103. She is 100% on room air. General description is a young female up in the bed in no distress. No tachypnea or accessory muscle of respiration use. HEENT: Shows no pallor or scleral icterus. Oral mucous membranes dry. No pharyngeal erythema. Neck trachea central. No thyromegaly. Lungs unlabored breathing. Clear to auscultation with no wheeze or crackles. Heart S1, S2. Regular rate and rhythm. ABDOMEN: Soft, no tenderness. Mild left flank tenderness. No guarding. No organomegaly. EXTREMITIES: No edema of the feet. Skin examination no rash or mass palpable. Neurological: Patient is awake, alert, oriented times three. Mood and affect normal. LABS: Hemoglobin 13.4, 19.7, BUN of 13, creatinine 0.60. Electrolytes have been normal. Liver enzymes are normal. The urine is positive with large leukocyte esterase: 1-2 WBC. A blood and urine cultures currently pending. DIAGNOSTIC IMPRESSION AND PLAN: Patient admitted to the hospital with sepsis in a patient who did have a fever of 103, [place] [id number]. Source is likely left-sided pyelonephritis likely from enteric gram-negative pathogen. The patient's CT did not show any evidence of any structural abnormality. The patient who did not have any history of recurrent UTI, could be sensitive pathogen. PLAN: 1. We will keep the patient on Rocephin, however did increase the dose to 2 g daily so that the b.i.d. dosing. 2. IV fluid. 3. Depending upon the clinical response as well as cultures, adjust the medication further if needed. Thank you for this consultation. We will follow the patient along with you. LUIS ALFREDOL / RODN: [id number] /
[2017-10-04 08:19] LABS: Basophils % (A) 0 %; Eosinophils # (A) 0.1 k/uL (0-0.7); Eosinophils % (A) 1 %; HCT 33.7 % (34.0-46.0); HGB 10.9 gm/dL (11.4-16.0); Lymphocytes # (A) 2.7 k/uL (1.0-4.8); Lymphocytes % (A) 29 %; MCH 30.4 pg (25.0-35.0); MCHC 32.2 g/dL (31.0-37.0); MCV 94.4 fL (80.0-100.0); Mean Platelet Volume 7.6; Monocytes # (A) 0.7 k/uL (0-1.0); Monocytes % (A) 7 %; Neutrophils # (A) 5.6 k/uL (1.3-7.7); Neutrophils % (A) 59 %; Platelet Count 207 k/uL (150-450); RBC 3.57 m/uL (3.80-5.40); RDW 15.4 % (11.5-15.5); WBC 9.5 k/uL (3.8-10.6)
[2017-10-04 08:23] LABS: ALT 24 U/L (9-52); AST 13 U/L (14-36); Albumin 2.9 g/dL (3.5-5.0); Alkaline Phosphatase 60 U/L (38-126); Anion Gap 5 mmol/L; Blood Urea Nitrogen 11 mg/dL (7-17); Calcium 8.1 mg/dL (8.4-10.2); Carbon Dioxide 21 mmol/L (22-30); Chloride 112 mmol/L (98-107); Glucose 79 mg/dL (74-99); Potassium 4.4 mmol/L (3.5-5.1); Sodium 138 mmol/L (137-145); Total Bilirubin 0.2 mg/dL (0.2-1.3)
[2017-10-04] MEDS: SODIUM CHLORIDE 0.9% 1,000 ML IV SCH ×3 (09:03→17:58)
[2017-10-04] MEDS: cefTRIAXone IN SWFI 2,000 MG/20 ML SYRINGE IVP SCH (09:05)
[2017-10-04] MEDS: PANTOPRAZOLE 40 MG TABLET PO SCH ×2 (09:06→17:49)
--- NOTE | 2017-10-04 14:03 | PN ---
PROGRESS NOTE DATE OF SERVICE: 10/04/2017 REASON FOR FOLLOWUP: Left-sided pyelonephritis. INTERVAL HISTORY: The patient's overall fever pattern has improved. The patient is currently breathing comfortably. Denies having any chest pain or shortness of breath or cough. The left flank pain has improved and no diarrhea. PHYSICAL EXAMINATION: Blood pressure is 119/60 with a pulse of 68, temperature 98.2, she is 98% on room air. General description is a middle aged female, lying in bed in no distress. RESPIRATORY SYSTEM: Unlabored breathing, clear to auscultation anteriorly. HEART: S1, S2. Regular rate and rhythm. ABDOMEN: Soft, no tenderness. No flank tenderness. EXTREMITIES: No edema of the feet. LABS: White count 9.5. Urine culture currently showing a gram-negative with ID sensitivity pending. Blood culture has been negative. DIAGNOSTIC IMPRESSION AND PLAN: Patient admitted to the hospital with sepsis. Source is left pyelonephritis. Patient to continue with Rocephin while waiting for the culture to finalize to determine discharge antibiotics. Continue supportive care. MMODL / IJN: [id number] /
--- NOTE | 2017-10-04 18:36 | PN ---
PROGRESS NOTE SUBJECTIVE: This is a 22-year-old white female with pyelonephritis. Left flank pain is improving. Await final cultures of the urine prior to discharge per Dr. Coello's recommendations. CARDIOVASCULAR: S1, S2. LUNGS: Clear. GI: Increased bowel sounds. Mild tenderness, left flank. HEMATOLOGY: Negative Homans. ASSESSMENT: 1. Pyelonephritis. 2. Acute abdominal pain. Continue with IV Rocephin and antibiotics per Dr. Coello. Possible discharge home tomorrow. MMODL / IJN: [id number] /
[2017-10-04] MEDS: traMADol 50 MG TAB PO PRN (20:34)
[2017-10-05 05:19] VITALS: BP 126/80; PULSE 54; TEMP 98.6
[2017-10-05] MEDS: SODIUM CHLORIDE 0.9% 1,000 ML IV SCH (07:53)
[2017-10-05] MEDS: PANTOPRAZOLE 40 MG TABLET PO SCH (07:55)
[2017-10-05] MEDS: cefTRIAXone IN SWFI 2,000 MG/20 ML SYRINGE IVP SCH (07:55)
--- NOTE | 2017-10-05 14:01 | PN ---
PROGRESS NOTE DATE OF SERVICE: 10/05/2017. REASON FOR FOLLOWUP: E coli left-sided pyelonephritis. INTERVAL HISTORY: The patient is currently afebrile. She is breathing comfortably. Denies any chest pain or shortness of breath or cough. Pain to the left leg is slightly improved. No nausea, vomiting. No diarrhea. EXAMINATION: Blood pressure 126/80 with a pulse of 54, temperature 98.3. She is 99% on room air. General description is a young female, up in the room in no distress. RESPIRATORY SYSTEM: Unlabored breathing. Clear to auscultation anteriorly. HEART: S1, S2. Regular rate and rhythm. ABDOMEN: Soft. Left flank pain and tenderness are decreased. LABS: Blood culture negative. Urine culture has an E coli that is sensitive pathogen. DIAGNOSTIC IMPRESSION AND PLAN: Patient E coli left-sided pyelonephritis. Antibiotic will transition to oral Cipro 500 mg b.i.d. for 10 days with close outpatient followup. Continue supportive care. MMODL / IJN: [id number] /
== END 2017-10-05 14:26 | disposition home or self-care (01) | DRG 872 ==
LOC: EC 17:21 → 5MS5E 23:12
PROVIDERS: ADMIT Family Medicine; ATTEND Family Medicine
DX: A41.51 Sepsis due to Escherichia coli [E. coli] (principal); N10 Acute pyelonephritis; F17.200 Nicotine dependence, unspecified, uncomplicated; K21.9 Gastro-esophageal reflux disease without esophagitis; Z82.49 Family history of ischemic heart disease and other diseases of the circulatory system; Z86.19 Personal history of other infectious and parasitic diseases; F41.9 Anxiety disorder, unspecified; Z88.5 Allergy status to narcotic agent; Z88.8 Allergy status to other drugs, medicaments and biological substances
CPT/HCPCS: 36415; 71046; 74177; 80053; 81001; 81025; 83605; 85025; 87040; 87077; 87081; 87086; 87186; 87430; 96361; 96374; 96375; 99285

== ENCOUNTER 2018-12-26 17:47 | Emergency (ER) | payer OTHER ==
[2018-12-26 17:54] VITALS: PULSE 88; RESP 18; TEMP 98.7
[2018-12-26 18:05] VITALS: BP 124/76
[2018-12-26 18:39] LABS: Appearance,Urine Cloudy (Clear); Bilirubin,Urine Negative (Negative); Blood,Urine Negative (Negative); Color,Urine Yellow; Glucose,Urine (UA) Negative (Negative); Ketones,Urine Negative (Negative); Leukocyte Esterase,Urine Negative (Negative); Nitrite,Urine Negative (Negative); PH, Urine 7.5 (5.0-8.0); Protein,Urine Negative (Negative); Specific Gravity,Urine 1.021 (1.001-1.035); Squamous Epithelial Cell,Urine 4 /hpf (0-4); Urobilinogen,Urine <2.0 mg/dL (<2.0)
--- NOTE | 2018-12-26 18:44 | ED ---
Psych HPI - General Chief Complaint: Psychiatric Symptoms Stated Complaint: Hallucinations Time Seen by Provider: 12/26/18 18:10 Source: patient, RN notes reviewed Mode of arrival: ambulatory Limitations: no limitations - History of Present Illness Initial Comments: 23-year-old female presents emergency Department chief complaint of possible hallucinations or loss of memory. Patient states that she had 2 events recently where she did something that she does not remember how it happened or what she did. Patient states that she has no other symptoms denies any current headache, dizziness, blurred vision. She did state that she felt off-balance other day that resolved. Denies chest pain, palpitations, nausea, vomiting or constipation no drug use no alcohol abuse denies any dysuria hematuria denies any chance - Related Data Previous Rx's Medication Instructions Recorded Ciprofloxacin HCl [Cipro] 500 mg PO Q12HR #20 tablet 10/05/17 Allergies Allergy/AdvReac Type Severity Reaction Status Date / Time metoclopramide HCl AdvReac PANICK Verified 12/26/18 19:44 [From Reglan] ATTACKS morphine AdvReac Nausea & Verified 12/26/18 19:44 Vomiting Review of Systems ROS Statement: Those systems with pertinent positive or pertinent negative responses have been documented in the HPI. ROS Other: All systems not noted in ROS Statement are negative. Past Medical History Past Medical History: GERD/Reflux Additional Past Medical History / Comment(s): gallstones, HSV History of Any Multi-Drug Resistant Organisms: None Reported Past Surgical History: Section Additional Past Surgical History / Comment(s): c section x 3 Past Anesthesia/Blood Transfusion Reactions: Postoperative Nausea & Vomiting (PONV) Past Psychological History: Anxiety, Depression Smoking Status: Current every day smoker Past Alcohol Use History: None Reported, Rare Past Drug Use History: None Reported - Past Family History Mother Family Medical History: Fibromyalgia, Hypertension Additional Family Medical History / Comment(s): heart problems unknown General Exam Limitations: no limitations General appearance: alert, in no apparent distress Head exam: Present: atraumatic, normocephalic, normal inspection Eye exam: Present: normal appearance, PERRL, EOMI. Absent: scleral icterus, conjunctival injection, periorbital swelling ENT exam: Present: normal exam, normal oropharynx, mucous membranes moist, TM's normal bilaterally Neck exam: Present: normal inspection. Absent: tenderness, meningismus, lymphadenopathy Respiratory exam: Present: normal lung sounds bilaterally. Absent: respiratory distress, wheezes, rales, rhonchi, stridor Cardiovascular Exam: Present: regular rate, normal rhythm, normal heart sounds. Absent: systolic murmur, diastolic murmur, rubs, gallop, clicks GI/Abdominal exam: Present: soft, normal bowel sounds. Absent: distended, tenderness, guarding, rebound, rigid Neurological exam: Present: alert, oriented X3, CN II-XII intact, reflexes normal. Absent: motor sensory deficit Skin exam: Present: warm, dry, intact, normal color. Absent: rash Course Vital Signs 12/26/18 12/26/18 17:49 18:05 Temperature 98.7 F Pulse Rate 88 Respiratory 18 Rate Blood Pressure 124/76 O2 Sat by Pulse 99 Oximetry Medical Decision Making - Medical Decision Making CT, labs unremarkable. Patient has had a couple events where she does not remember. She is aware of these at this time. Patient will be referred to neurology. Patient agrees with this plan return parameters were discussed. - Lab Data Result diagrams: 12/26/18 18:30 12/26/18 18:30 Lab Results 12/26/18 12/26/18 12/26/18 Range/Units 16:05 16:05 18:30 WBC (3.8-10.6) k/uL RBC (3.80-5.40) m/uL Hgb (11.4-16.0) gm/dL Hct (34.0-46.0) % MCV (80.0-100.0) fL MCH (25.0-35.0) pg MCHC (31.0-37.0) g/dL RDW (11.5-15.5) % Plt Count (150-450) k/uL Neutrophils % % Lymphocytes % % Monocytes % % Eosinophils % % Basophils % % Neutrophils # (1.3-7.7) k/uL Lymphocytes # (1.0-4.8) k/uL Monocytes # (0-1.0) k/uL Eosinophils # (0-0.7) k/uL Basophils # (0-0.2) k/uL Sodium 139 (137-145) mmol/L Potassium 4.2 (3.5-5.1) mmol/L Chloride 108 H (98-107) mmol/L Carbon Dioxide 22 (22-30) mmol/L Anion Gap 9 mmol/L BUN 18 H (7-17) mg/dL Creatinine 0.61 (0.52-1.04) mg/dL Est GFR (CKD-EPI)AfAm >90 (>60 ml/min/1.73 sqM) Est GFR (CKD-EPI)NonAf >90 (>60 ml/min/1.73 sqM) Glucose 117 H (74-99) mg/dL Calcium 9.2 (8.4-10.2) mg/dL Total Bilirubin 0.2 (0.2-1.3) mg/dL AST 26 (14-36) U/L ALT 39 (9-52) U/L Alkaline Phosphatase 91 (38-126) U/L Total Protein 7.1 (6.3-8.2) g/dL Albumin 4.4 (3.5-5.0) g/dL TSH 2.960 (0.465-4.680) mIU/L Urine Color Yellow Urine Appearance Cloudy H (Clear) Urine pH 7.5 (5.0-8.0) Ur Specific [place] 1.021 (1.001-1.035) Urine Protein Negative (Negative) Urine Glucose (UA) Negative (Negative) Urine Ketones Negative (Negative) Urine Blood Negative (Negative) Urine Nitrite Negative (Negative) Urine Bilirubin Negative (Negative) Urine Urobilinogen <2.0 (<2.0) mg/dL Ur Leukocyte Esterase Negative (Negative) Ur Squamous Epith Cells 4 (0-4) /hpf Urine HCG, Qual Not Detected (Not Detectd) Urine Opiates Screen Not Detected (NotDetected) Ur Oxycodone Screen Not Detected (NotDetected) Urine Methadone Screen Not Detected (NotDetected) Ur Propoxyphene Screen Not Detected (NotDetected) Ur Barbiturates Screen Not Detected (NotDetected) U Tricyclic Antidepress Not Detected (NotDetected) Ur Phencyclidine Scrn Not Detected (NotDetected) Ur Amphetamines Screen Not Detected (NotDetected) U Methamphetamines Scrn Not Detected (NotDetected) U Benzodiazepines Scrn Not Detected (NotDetected) Urine Cocaine Screen Not Detected (NotDetected) U Marijuana (THC) Screen Not Detected (NotDetected) 12/26/18 Range/Units 18:30 WBC 13.9 H (3.8-10.6) k/uL RBC 4.03 (3.80-5.40) m/uL Hgb 13.9 (11.4-16.0) gm/dL Hct 39.0 (34.0-46.0) % MCV 96.6 (80.0-100.0) fL MCH 34.4 (25.0-35.0) pg MCHC 35.6 (31.0-37.0) g/dL RDW 12.1 (11.5-15.5) % Plt Count 277 (150-450) k/uL Neutrophils % 55 % Lymphocytes % 34 % Monocytes % 4 % Eosinophils % 3 % Basophils % 1 % Neutrophils # 7.7 (1.3-7.7) k/uL Lymphocytes # 4.8 (1.0-4.8) k/uL Monocytes # 0.6 (0-1.0) k/uL Eosinophils # 0.4 (0-0.7) k/uL Basophils # 0.1 (0-0.2) k/uL Sodium (137-145) mmol/L Potassium (3.5-5.1) mmol/L Chloride (98-107) mmol/L Carbon Dioxide (22-30) mmol/L Anion Gap mmol/L BUN (7-17) mg/dL Creatinine (0.52-1.04) mg/dL Est GFR (CKD-EPI)AfAm (>60 ml/min/1.73 sqM) Est GFR (CKD-EPI)NonAf (>60 ml/min/1.73 sqM) Glucose (74-99) mg/dL Calcium (8.4-10.2) mg/dL Total Bilirubin (0.2-1.3) mg/dL AST (14-36) U/L ALT (9-52) U/L Alkaline Phosphatase (38-126) U/L Total Protein (6.3-8.2) g/dL Albumin (3.5-5.0) g/dL TSH (0.465-4.680) mIU/L Urine Color Urine Appearance (Clear) Urine pH (5.0-8.0) Ur Specific [place] (1.001-1.035) Urine Protein (Negative) Urine Glucose (UA) (Negative) Urine Ketones (Negative) Urine Blood (Negative) Urine Nitrite (Negative) Urine Bilirubin (Negative) Urine Urobilinogen (<2.0) mg/dL Ur Leukocyte Esterase (Negative) Ur Squamous Epith Cells (0-4) /hpf Urine HCG, Qual (Not Detectd) Urine Opiates Screen (NotDetected) Ur Oxycodone Screen (NotDetected) Urine Methadone Screen (NotDetected) Ur Propoxyphene Screen (NotDetected) Ur Barbiturates Screen (NotDetected) U Tricyclic Antidepress (NotDetected) Ur Phencyclidine Scrn (NotDetected) Ur Amphetamines Screen (NotDetected) U Methamphetamines Scrn (NotDetected) U Benzodiazepines Scrn (NotDetected) Urine Cocaine Screen (NotDetected) U Marijuana (THC) Screen (NotDetected) Disposition Clinical Impression: Intermittent confusion, Lightheaded Disposition: HOME SELF-CARE Condition: Stable Instructions (If sedation given, give patient instructions): Hallucinations (ED) Additional Instructions: Please return to the Emergency Department if symptoms worsen or any other concerns. Is patient prescribed a controlled substance at d/c from ED?: No Referrals: Evin Dsouza MD [Primary Care Provider] - 1-2 days Jose Eduardo Eddy DO [STAFF PHYSICIAN] - 1-2 days Radha Weaver MD [STAFF PHYSICIAN] - 1-2 days Time of Disposition: 19:45
[2018-12-26 18:50] LABS: ALT 39 U/L (9-52); AST 26 U/L (14-36); African American GFR (CKD) >90 (>60 ml/min/1.73 sqM); Albumin 4.4 g/dL (3.5-5.0); Alkaline Phosphatase 91 U/L (38-126); Anion Gap 9 mmol/L; Blood Urea Nitrogen 18 mg/dL (7-17); Calcium 9.2 mg/dL (8.4-10.2); Carbon Dioxide 22 mmol/L (22-30); Chloride 108 mmol/L (98-107); Glucose 117 mg/dL (74-99); Potassium 4.2 mmol/L (3.5-5.1); Sodium 139 mmol/L (137-145); Total Bilirubin 0.2 mg/dL (0.2-1.3); Total Protein 7.1 g/dL (6.3-8.2)
[2018-12-26 18:53] LABS: Basophils # (A) 0.1 k/uL (0-0.2); Basophils % (A) 1 %; Eosinophils # (A) 0.4 k/uL (0-0.7); Eosinophils % (A) 3 %; HGB 13.9 gm/dL (11.4-16.0); Lymphocytes # (A) 4.8 k/uL (1.0-4.8); Lymphocytes % (A) 34 %; MCH 34.4 pg (25.0-35.0); MCHC 35.6 g/dL (31.0-37.0); MCV 96.6 fL (80.0-100.0); Mean Platelet Volume 6.4; Monocytes # (A) 0.6 k/uL (0-1.0); Monocytes % (A) 4 %; Neutrophils # (A) 7.7 k/uL (1.3-7.7); Neutrophils % (A) 55 %; Platelet Count 277 k/uL (150-450); RBC 4.03 m/uL (3.80-5.40); RDW 12.1 % (11.5-15.5); WBC 13.9 k/uL (3.8-10.6)
[2018-12-26 18:53] LABS: Amphetamine Screen,Urine Not Detected (NotDetected); Barbiturate Screen,Urine Not Detected (NotDetected); Benzodiazepines Screen,Urine Not Detected (NotDetected); Cocaine Screen,Urine Not Detected (NotDetected); Methadone Screen, Urine Not Detected (NotDetected); Opiate Screen,Urine Not Detected (NotDetected); Oxycodone Screen, Urine Not Detected (NotDetected); Phencyclidine Screen,Urine Not Detected (NotDetected); Tricyclic Antidepressant,Urine Not Detected (NotDetected); Urn Cannabinoid Scrn Not Detected (NotDetected)
--- NOTE | 2018-12-26 19:25 | CT ---
EXAMINATION TYPE: CT brain wo con DATE OF EXAM: 12/26/2018 COMPARISON: None HISTORY: c/o hallucinations CT DLP: 1068.4 mGycm. Automated Exposure Control for Dose Reduction was Utilized. TECHNIQUE: CT scan of the head is performed without contrast. FINDINGS: Ventricles have normal size. There is no mass effect nor midline shift. There is no sign of intracranial hemorrhage. Calvarium is intact. IMPRESSION: Negative CT scan of the brain.
== END 2018-12-26 19:52 | disposition home or self-care (01) ==
LOC: EC 17:47
DX: R41.0 Disorientation, unspecified (principal); R42 Dizziness and giddiness; F17.200 Nicotine dependence, unspecified, uncomplicated; Z88.5 Allergy status to narcotic agent; Z88.8 Allergy status to other drugs, medicaments and biological substances
CPT/HCPCS: 36415; 70450; 80053; 80306; 81001; 81025; 84443; 85025; 99285

== ENCOUNTER 2019-02-08 23:16 | Emergency (ER) | payer OTHER ==
[2019-02-08 23:25] VITALS: TEMP 98
[2019-02-08] MEDS ORDERED: KETOROLAC 30 MG/ML 1 ML VIAL IVP STA (23:37)
[2019-02-08] MEDS ORDERED: SODIUM CHLORIDE 0.9% 1,000 ML IV STA (23:37)
[2019-02-08] MEDS ORDERED: ONDANSETRON 4 MG/2 ML VIAL IVP STA (23:37)
[2019-02-08] MEDS ORDERED: FAMOTIDINE 20 MG/2 ML VIAL IV STA (23:38)
[2019-02-09 00:12] LABS: Appearance,Urine Clear (Clear); Bilirubin,Urine Negative (Negative); Blood,Urine Negative (Negative); Color,Urine Yellow; Glucose,Urine (UA) Negative (Negative); Ketones,Urine Negative (Negative); Leukocyte Esterase,Urine Negative (Negative); Nitrite,Urine Negative (Negative); Protein,Urine Negative (Negative); Specific Gravity,Urine 1.024 (1.001-1.035); Urobilinogen,Urine <2.0 mg/dL (<2.0)
[2019-02-09 00:16] VITALS: RESP 18
[2019-02-09 00:20] LABS: African American GFR (CKD) >90 (>60 ml/min/1.73 sqM); Albumin 4.7 g/dL (3.5-5.0); Amylase 60 U/L (30-110); Anion Gap 9 mmol/L; Basophils % (A) 0 %; Calcium 9.3 mg/dL (8.4-10.2); Carbon Dioxide 23 mmol/L (22-30); Chloride 108 mmol/L (98-107); Eosinophils # (A) 0.3 k/uL (0-0.7); Eosinophils % (A) 2 %; Glucose 81 mg/dL (74-99); HCT 44.4 % (34.0-46.0); HGB 15.5 gm/dL (11.4-16.0); Lymphocytes # (A) 4.3 k/uL (1.0-4.8); Lymphocytes % (A) 34 %; MCH 33.7 pg (25.0-35.0); MCHC 34.9 g/dL (31.0-37.0); MCV 96.5 fL (80.0-100.0); Mean Platelet Volume 7.3; Monocytes # (A) 0.6 k/uL (0-1.0); Monocytes % (A) 5 %; Neutrophils # (A) 7.1 k/uL (1.3-7.7); Neutrophils % (A) 57 %; Non-African American GFR(CKD) >90 (>60 ml/min/1.73 sqM); Platelet Count 373 k/uL (150-450); RDW 11.9 % (11.5-15.5); Sodium 140 mmol/L (137-145); Total Bilirubin 0.5 mg/dL (0.2-1.3); Total Protein 7.6 g/dL (6.3-8.2); WBC 12.6 k/uL (3.8-10.6)
[2019-02-09 00:21] LABS: ALT 65 U/L (9-52); AST 43 U/L (14-36); Alkaline Phosphatase 91 U/L (38-126); Blood Urea Nitrogen 13 mg/dL (7-17); Potassium 4.4 mmol/L (3.5-5.1)
--- NOTE | 2019-02-09 00:37 | ED ---
Abdominal Pain HPI - General Chief Complaint: Abdominal Pain Stated Complaint: Abd pain,vomiting Time Seen by Provider: 02/08/19 23:26 Source: patient Mode of arrival: ambulatory Limitations: no limitations - History of Present Illness Initial Comments: Patient is a 24-year-old female presenting to the emergency room with a chief complaint of abdominal pain nausea vomiting. Patient reports developing sudden onset of postprandial abdominal pain which initially started in the epigastric region and gradually migrated to the midline suprapubic region. Patient reports the pain has almost completely resolved right now although it does come and go in waves. Patient reports the pain feels squeezing in nature. Patient reports about half hour after eating the food she developed nausea and had one episode of nonbilious vomiting. She reports the nausea has never resolved although she did not vomit after that. Patient denies diarrhea or constipation. Patient denies fever or chills. Patient denies taking medication to alleviate the symptoms. Patient denies previous abdominal surgery aside from hysterectomy. Patient states that she was diagnosed with sludge in the gallbladder years ago although she has not had any issues. - Related Data Home Medications Medication Instructions Recorded Confirmed No Known Home Medications 12/26/18 12/26/18 Allergies Allergy/AdvReac Type Severity Reaction Status Date / Time metoclopramide HCl AdvReac PANICK Verified 02/08/19 23:25 [From Pasquale] ATTACKS morphine AdvReac Nausea & Verified 02/08/19 23:25 Vomiting Review of Systems ROS Statement: Those systems with pertinent positive or pertinent negative responses have been documented in the HPI. ROS Other: All systems not noted in ROS Statement are negative. Past Medical History Past Medical History: GERD/Reflux Additional Past Medical History / Comment(s): gallstones, HSV History of Any Multi-Drug Resistant Organisms: None Reported Past Surgical History: Section Additional Past Surgical History / Comment(s): c section x 3 Past Anesthesia/Blood Transfusion Reactions: Postoperative Nausea & Vomiting (PONV) Past Psychological History: Anxiety, Depression Smoking Status: Current every day smoker Past Alcohol Use History: Rare Past Drug Use History: None Reported - Past Family History Mother Family Medical History: Fibromyalgia, Hypertension Additional Family Medical History / Comment(s): heart problems unknown General Exam Limitations: no limitations General appearance: alert, in no apparent distress Head exam: Present: atraumatic, normocephalic, normal inspection Eye exam: Present: normal appearance Pupils: Present: normal accommodation ENT exam: Present: normal exam, mucous membranes moist Neck exam: Present: normal inspection, full ROM Respiratory exam: Present: normal lung sounds bilaterally Cardiovascular Exam: Present: regular rate, normal rhythm, normal heart sounds GI/Abdominal exam: Present: soft, tenderness (Right upper quadrant. Positive Robert. 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 Some midline suprapubic tenderness.), normal bowel sounds. Absent: guarding, rebound, rigid Extremities exam: Present: normal inspection, full ROM Back exam: Present: normal inspection, full ROM. Absent: CVA tenderness (R), CVA tenderness (L) Neurological exam: Present: alert, oriented X3 Psychiatric exam: Present: normal affect, normal mood Skin exam: Present: warm, dry, intact, normal color Course Vital Signs 02/08/19 02/09/19 23:23 00:15 Temperature 98 F Pulse Rate 82 70 Respiratory 20 18 Rate Blood Pressure 133/83 107/73 O2 Sat by Pulse 98 95 Oximetry Medical Decision Making - Medical Decision Making Patient is a 24-year-old female presenting to emergency Department with a chief complaint of nausea vomiting abdominal pain. Physical exam shows right upper q uadrant abdominal pain with a positive Robert sign. Patient given fluids, Toradol and antiemetics. On reevaluation patient reports improvement in her symptoms. CBC does show mild leukocytosis which I suspect is secondary to the vomiting. Mild elevation in liver enzymes. No elevation of bilirubin. Patient is not jaundice. No scleral icterus. Right upper quadrant ultrasound is indicative of multiple large stones. No signs of cholecystitis. Vital stable. Information discussed with patient. Patient will be discharged with a Zofran starter pack. Patient advised to follow-up with a general surgeon. Patient advised to avoid eating fatty food. Strict return parameters were thoroughly discussed with patient was understanding and agreeable. Case discussed with physician. - Lab Data Result diagrams: 02/08/19 23:27 02/08/19 23:27 Lab Results 02/08/19 02/08/19 02/08/19 Range/Units 23:27 23:27 23:27 WBC 12.6 H (3.8-10.6) k/uL RBC 4.60 (3.80-5.40) m/uL Hgb 15.5 (11.4-16.0) gm/dL Hct 44.4 (34.0-46.0) % MCV 96.5 (80.0-100.0) fL MCH 33.7 (25.0-35.0) pg MCHC 34.9 (31.0-37.0) g/dL RDW 11.9 (11.5-15.5) % Plt Count 373 (150-450) k/uL Neutrophils % 57 % Lymphocytes % 34 % Monocytes % 5 % Eosinophils % 2 % Basophils % 0 % Neutrophils # 7.1 (1.3-7.7) k/uL Lymphocytes # 4.3 (1.0-4.8) k/uL Monocytes # 0.6 (0-1.0) k/uL Eosinophils # 0.3 (0-0.7) k/uL Basophils # 0.0 (0-0.2) k/uL Sodium 140 (137-145) mmol/L Potassium 4.4 (3.5-5.1) mmol/L Chloride 108 H (98-107) mmol/L Carbon Dioxide 23 (22-30) mmol/L Anion Gap 9 mmol/L BUN 13 (7-17) mg/dL Creatinine 0.53 (0.52-1.04) mg/dL Est GFR (CKD-EPI)AfAm >90 (>60 ml/min/1.73 sqM) Est GFR (CKD-EPI)NonAf >90 (>60 ml/min/1.73 sqM) Glucose 81 (74-99) mg/dL Calcium 9.3 (8.4-10.2) mg/dL Total Bilirubin 0.5 (0.2-1.3) mg/dL AST 43 H (14-36) U/L ALT 65 H (9-52) U/L Alkaline Phosphatase 91 (38-126) U/L Total Protein 7.6 (6.3-8.2) g/dL Albumin 4.7 (3.5-5.0) g/dL Amylase 60 (30-110) U/L Lipase 75 (23-300) U/L Urine Color Yellow Urine Appearance Clear (Clear) Urine pH 7.0 (5.0-8.0) Ur Specific [place] 1.024 (1.001-1.035) Urine Protein Negative (Negative) Urine Glucose (UA) Negative (Negative) Urine Ketones Negative (Negative) Urine Blood Negative (Negative) Urine Nitrite Negative (Negative) Urine Bilirubin Negative (Negative) Urine Urobilinogen <2.0 (<2.0) mg/dL Ur Leukocyte Esterase Negative (Negative) Urine HCG, Qual (Not Detectd) 02/08/19 Range/Units 23:27 WBC (3.8-10.6) k/uL RBC (3.80-5.40) m/uL Hgb (11.4-16.0) gm/dL Hct (34.0-46.0) % MCV (80.0-100.0) fL MCH (25.0-35.0) pg MCHC (31.0-37.0) g/dL RDW (11.5-15.5) % Plt Count (150-450) k/uL Neutrophils % % Lymphocytes % % Monocytes % % Eosinophils % % Basophils % % Neutrophils # (1.3-7.7) k/uL Lymphocytes # (1.0-4.8) k/uL Monocytes # (0-1.0) k/uL Eosinophils # (0-0.7) k/uL Basophils # (0-0.2) k/uL Sodium (137-145) mmol/L Potassium (3.5-5.1) mmol/L Chloride (98-107) mmol/L Carbon Dioxide (22-30) mmol/L Anion Gap mmol/L BUN (7-17) mg/dL Creatinine (0.52-1.04) mg/dL Est GFR (CKD-EPI)AfAm (>60 ml/min/1.73 sqM) Est GFR (CKD-EPI)NonAf (>60 ml/min/1.73 sqM) Glucose (74-99) mg/dL Calcium (8.4-10.2) mg/dL Total Bilirubin (0.2-1.3) mg/dL AST (14-36) U/L ALT (9-52) U/L Alkaline Phosphatase (38-126) U/L Total Protein (6.3-8.2) g/dL Albumin (3.5-5.0) g/dL Amylase (30-110) U/L Lipase (23-300) U/L Urine Color Urine Appearance (Clear) Urine pH (5.0-8.0) Ur Specific [place] (1.001-1.035) Urine Protein (Negative) Urine Glucose (UA) (Negative) Urine Ketones (Negative) Urine Blood (Negative) Urine Nitrite (Negative) Urine Bilirubin (Negative) Urine Urobilinogen (<2.0) mg/dL Ur Leukocyte Esterase (Negative) Urine HCG, Qual Not Detected (Not Detectd) Disposition Clinical Impression: Cholelithiasis Disposition: HOME SELF-CARE Condition: Stable Instructions (If sedation given, give patient instructions): Gallstones (ED), Low Fat Diet (ED) Additional Instructions: Please follow up with a general surgeon. Avoid eating fatty foods. Please take prescribed medication as directed. Please return to emergency department if symptoms worsen. Is patient prescribed a controlled substance at d/c from ED?: No Referrals: Leno Hodgson MD [Primary Care Provider] - 1-2 days Mendoza Fowler MD [STAFF PHYSICIAN] - 1-2 days Time of Disposition: 01:29
--- NOTE | 2019-02-09 01:11 | US ---
EXAMINATION TYPE: US abdomen limited DATE OF EXAM: 02/09/2019 COMPARISON: NONE CLINICAL HISTORY: ruq pain, +robert. EXAM MEASUREMENTS: Liver Length: 16.6 cm Gallbladder Wall: 0.2 cm CBD: 0.7 cm Right Kidney: 10.9 x 3.9 x 5.8 cm Pancreas: partially obscured by bowel gas, portions visualized wnl Liver: Increased attenuation Gallbladder: stones, no wall thickening Evidence for sonographic Robert's sign: not apparent at time of ultrasound CBD: dilated Right Kidney: wnl IMPRESSION: There are numerous large gallstones. No dilated ducts. Intrahepatic bile ducts are not dilated. No pa ncreatic mass. No free fluid.
[2019-02-09 01:36] VITALS: BP 110/80; PULSE 77
[2019-02-09] MEDS ORDERED: ONDANSETRON 4 MG ODT STARTER PACK 2 TAB BTL PO STA (01:37)
== END 2019-02-09 01:36 | disposition home or self-care (01) ==
LOC: EC 23:16
DX: K80.20 Calculus of gallbladder without cholecystitis without obstruction (principal); Z32.02 Encounter for pregnancy test, result negative; F17.200 Nicotine dependence, unspecified, uncomplicated; Z88.5 Allergy status to narcotic agent; Z88.8 Allergy status to other drugs, medicaments and biological substances
CPT/HCPCS: 36415; 80053; 82150; 83690; 85025; 81003; 81025; 76705; 99284; 96374; 96375 ×2; 96361; J2405; J1885

== ENCOUNTER 2019-03-11 07:40 | Day surgery (SDC) | payer OTHER ==
[2019-03-01 13:22] VITALS: BMI 35.1
[~2019-03-11 07:40] MED LIST: DEXAMETHASONE SOD PHOSPHATE 10 MG/ML 1 ML VIAL IV ONE; HEPARIN SODIUM,PORCINE 5,000 UNIT/ML 1 ML VIAL SQ ONE; LACTATED RINGERS 1,000 ML IV SCH; LIDOCAINE 1% 20 ML VIAL (10MG/ML) FOR IV START INTRADERMA PRN; MIDAZOLAM 2 MG/2 ML VIAL IV PRN; fentaNYL (PF) 50 MCG/ML 2 ML AMP IV PRN
[2019-03-11] MEDS ORDERED: DEXAMETHASONE SOD PHOSPHATE 10 MG/ML 1 ML VIAL IV ONE (08:22)
[2019-03-11] MEDS ORDERED: ONDANSETRON 4 MG/2 ML VIAL IVP ONE ×2 (08:23→11:02)
[2019-03-11] MEDS ORDERED: BUPIVACAIN-EPI 0.25%-1:200,000 30 ML VIAL SQ ONE ×2 (08:31→09:05)
--- NOTE | 2019-03-11 08:32 | P.GSHP ---
History of Present Illness H&P Date: 03/11/19 Chief Complaint: Right upper quadrant pain This a 24-year-old female who presents today for laparoscopic cholecystectomy. Patient has had complaints of right quadrant pain. Social shows evidence of cholelithiasis Past Medical History Past Medical History: GERD/Reflux Additional Past Medical History / Comment(s): gallstones, HSV History of Any Multi-Drug Resistant Organisms: None Reported Past Surgical History: Section Additional Past Surgical History / Comment(s): c section x 3 Past Anesthesia/Blood Transfusion Reactions: Postoperative Nausea & Vomiting (PONV) Smoking Status: Current every day smoker - Past Family History Mother Family Medical History: Fibromyalgia, Hypertension Additional Family Medical History / Comment(s): heart problems unknown Medications and Allergies Home Medications Medication Instructions Recorded Confirmed Type No Known Home Medications 12/26/18 03/11/19 History Allergies Allergy/AdvReac Type Severity Reaction Status Date / Time metoclopramide HCl AdvReac PANICK Verified 03/11/19 08:05 [From Reglan] ATTACKS morphine AdvReac Nausea & Verified 03/11/19 08:05 Vomiting Surgical - Exam Vital Signs Temp Pulse Resp BP Pulse Ox 97.5 F L 73 16 118/56 97 03/11/19 08:03 03/11/19 08:03 03/11/19 08:03 03/11/19 08:03 03/11/19 08:03 - General well developed, well nourished, no distress - Eyes PERRL - ENT normal pinna - Neck no masses - Respiratory normal expansion - Cardiovascular Rhythm: regular - Abdomen Abdomen: soft, non tender Assessment and Plan Assessment: Cholelithiasis Acute on chronic cholecystitis We'll perform laparoscopic cholecystectomy
[2019-03-11] MEDS ORDERED: HYDROmorphone (PF) 1 MG/ML ONE (08:49)
[2019-03-11] MEDS ORDERED: SUCCINYLCHOLINE CHLORIDE 100 MG/5 ML SYR IV ONE (08:49)
[2019-03-11] MEDS ORDERED: PROPOFOL 10 MG/ML 20 ML VIAL IV ONE (08:49)
[2019-03-11] MEDS ORDERED: LIDOCAINE 1% INJ 10MG/ML (20 ML MDV) ONE (08:49)
[2019-03-11] MEDS ORDERED: KETOROLAC 30 MG/ML 1 ML VIAL ONE (08:49)
[2019-03-11] MEDS ORDERED: fentaNYL (PF) 50 MCG/ML 2 ML AMP ONE (08:49)
[2019-03-11] MEDS ORDERED: GLYCOPYRROLATE 0.2 MG/ML 2 ML VIAL ONE (08:49)
[2019-03-11] MEDS ORDERED: NEOSTIGMINE 1 MG/ML 10 ML VIAL ONE (08:49)
[2019-03-11] MEDS ORDERED: MIDAZOLAM 2 MG/2 ML VIAL ONE (08:49)
[2019-03-11] MEDS ORDERED: ROCURONIUM BROMIDE 10 MG/ML 10 ML VIAL IV ONE (08:49)
--- NOTE | 2019-03-11 09:35 | P.OP ---
Date of Procedure: 03/11/19 Preoperative Diagnosis: Cholecystitis Postoperative Diagnosis: Cholecystitis Procedure(s) Performed: Laparoscopic cholecystectomy Anesthesia: GRAYSON Surgeon: Mendoza Fowler Estimated Blood Loss (ml): 5 Pathology: other (Gallbladder) Condition: stable Disposition: PACU Description of Procedure: The patient was placed on the operating table. The patient received a general endotracheal tube anesthesia. The patients abdomen was prepped and draped in the usual sterile fashion. Through an infraumbilical stab incision, the fascia of the anterior abdominal wall was grasped with a pair of Kochers and then the Veress needle was placed in the peritoneal cavity. Position of the Veress needle was confirmed with positive drop test. The abdomen was then insufflated. After adequate insufflation, the 10 mm trocar was placed in the peritoneal cavity. Following this the laparoscope was placed in the peritoneal cavity. The patient was placed in the head-up, right side up position and then a 5 mm trocar was placed in the right lateral and right subcostal position under direct visualization. A 8 mm trocar was placed in the epigastric position. The gallbladder was grasped in the fundus and infundibulum. Traction on the gallbladder was placed in the lateral and the cephalad positions. The triangle of [place] was visualized.. The cystic duct was bluntly dissected until the union of the cystic duct and common bile duct was seen. A critical view of safety was achieved. The cystic duct was then divided and sealed with the Harmonic scissors. A PDS Endoloop was then placed throughout the cystic duct stump. The cystic artery divided and sealed with the Harmonic scissors. The gallbladder was then removed from the liver bed using Harmonic scissors. The gallbladder was then extracted through the epigastric port site. Operative field was checked for any bleeding spots and Harmonic scissors was used to coagulate the liver bed. The abdomen was irrigated. The trocars were removed. The skin was closed using interrupted 3-0 Vicryl suture. Dermabond dressing were applied. The patient tolerated the procedure well.
[2019-03-11 09:46] VITALS: TEMP 97
[2019-03-11] MEDS ORDERED: MEPERIDINE 50 MG/ML SYRINGE IVP ONE (10:01)
[2019-03-11 11:00] VITALS: RESP 18
[2019-03-11 11:02] VITALS: BP 96/60; PULSE 87
[2019-03-11] MEDS ORDERED: HYDROcodone/APAP 5-325MG 1 EACH TAB PO ONE (11:58)
== END 2019-03-11 12:29 | disposition home or self-care (01) ==
LOC: OR 07:40
PROVIDERS: ATTEND Surgery
DX: K80.12 Calculus of gallbladder with acute and chronic cholecystitis without obstruction (principal); J45.909 Unspecified asthma, uncomplicated; F17.210 Nicotine dependence, cigarettes, uncomplicated; K21.9 Gastro-esophageal reflux disease without esophagitis; Z88.5 Allergy status to narcotic agent; Z88.8 Allergy status to other drugs, medicaments and biological substances; Z79.899 Other long term (current) drug therapy; Z98.891 History of uterine scar from previous surgery; Z86.19 Personal history of other infectious and parasitic diseases; Z82.49 Family history of ischemic heart disease and other diseases of the circulatory system
CPT/HCPCS: 81025; 88304; 47562; J2250; J1644; J1100; J2710; J2175; J0690; J2405; J2001; J3010; J1885; J1170; J0330; J2704

== ENCOUNTER 2020-01-11 14:35 | Emergency (ER) | payer OTHER ==
[2020-01-11] MEDS ORDERED: Acetaminophen-Codeine 300-30mg TAB PO STA (15:45)
[2020-01-11 15:51] LABS: Amphetamine Screen,Urine Not Detected (NotDetected); Appearance,Urine Cloudy (Clear); Barbiturate Screen,Urine Not Detected (NotDetected); Benzodiazepines Screen,Urine Detected (NotDetected); Bilirubin,Urine Negative (Negative); Blood,Urine Negative (Negative); Cocaine Screen,Urine Not Detected (NotDetected); Color,Urine Yellow; Glucose,Urine (UA) Negative (Negative); Ketones,Urine Trace (Negative); Leukocyte Esterase,Urine Trace (Negative); Methadone Screen, Urine Not Detected (NotDetected); Mucus,Urine Many /hpf; Nitrite,Urine Negative (Negative); Opiate Screen,Urine Not Detected (NotDetected); Oxycodone Screen, Urine Not Detected (NotDetected); Phencyclidine Screen,Urine Not Detected (NotDetected); Protein,Urine Trace (Negative); RBC,Urine 1 /hpf (0-5); Specific Gravity,Urine 1.031 (1.001-1.035); Sperm,Urine Rare /hpf; Squamous Epithelial Cell,Urine 20 /hpf (0-4); Tricyclic Antidepressant,Urine Not Detected (NotDetected); Urn Cannabinoid Scrn Detected (NotDetected); WBC,Urine 1 /hpf (0-5)
--- NOTE | 2020-01-11 18:09 | ED ---
Psych HPI - General Chief Complaint: Psychiatric Symptoms Stated Complaint: Mental Health Time Seen by Provider: 01/11/20 15:09 Source: patient Mode of arrival: ambulatory - History of Present Illness Initial Comments: 24yo female presenting today for cc of suicidal ideation. Denies plan. States she has felt overwhlemed with life and struggled with depression. Patient denies attempt. Patient family concerned and brought her to the ER after she sent a group text to family stating "she doesnt want to live like this and wants it all to end". Patient appears nontoxic on arrival. Flat affedct, no acute distress. Her mother is bedside. Denies taking psychiatric medications. States she sees therapist and has gone to a total of 2 appointments. [place] teeth removed yesterday denies increased swelling, or pain out of proportion. Patient has no additional complaints. - Related Data Home Medications Medication Instructions Recorded Confirmed Chlorhexidine Gluconate [Peridex] 15 ml PO BID 01/11/20 01/11/20 Ibuprofen 600 mg PO Q4HR PRN 01/11/20 01/11/20 Penicillin V Potassium [Pen Vee K] 500 mg PO QID 01/11/20 01/11/20 Previous Rx's Medication Instructions Recorded Docusate [Colace] 100 mg PO BID #20 capsule 03/11/19 HYDROcodone/APAP 5-325MG [[place] 1 tab PO Q6HR PRN #10 tab 03/11/19 5-325] Allergies Allergy/AdvReac Type Severity Reaction Status Date / Time metoclopramide HCl AdvReac PANICK Verified 01/11/20 18:41 [From Reglan] ATTACKS morphine AdvReac Nausea & Verified 01/11/20 18:41 Vomiting Review of Systems ROS Statement: Those systems with pertinent positive or pertinent negative responses have been documented in the HPI. ROS Other: All systems not noted in ROS Statement are negative. Past Medical History Past Medical History: GERD/Reflux Additional Past Medical History / Comment(s): gallstones, HSV History of Any Multi-Drug Resistant Organisms: None Reported Past Surgical History: Section Additional Past Surgical History / Comment(s): c section x 3 Past Anesthesia/Blood Transfusion Reactions: Postoperative Nausea & Vomiting (PONV) Past Psychological History: Anxiety, Depression Smoking Status: Current every day smoker Past Alcohol Use History: Rare Past Drug Use History: Marijuana - Past Family History Mother Family Medical History: Fibromyalgia, Hypertension Additional Family Medical History / Comment(s): heart problems unknown General Exam - General Exam Comments Initial Comments: General: The patient is awake and alert, in no distress Eye: +3 ,, [upils are equal, round and reactive to light, extra-ocular movements are intact. No nystagmus. There is normal conjunctiva bilaterally. No signs of icterus. Ears, nose, mouth and throat: There are moist mucous membranes and no oral lesions. Neck: The neck is supple, there is no tenderness or JVD. Cardiovascular: There is a regular rate and rhythm. No murmur, rub or gallop is appreciated. Respiratory: Lungs are clear to auscultation, respirations are non-labored, breath sounds are equal. No wheezes, stridor, rales, or rhonchi. Gastrointestinal: Soft, non-distended, non-tender abdomen without masses or organomegaly noted. There is no rebound or guarding present. Musculoskeletal: Normal ROM, no tenderness. Strength 5/5. Sensation intact. radial pulses equal bilaterally 2+. Neurological: A&O x 3. CN II-XII intact grossly, There are no obvious motor or sensory deficits. Coordination appears grossly intact. Speech is normal. Skin: Skin is warm and dry and no rashes or lesions are noted. Psychiatric: Cooperative Limitations: no limitations Course Vital Signs 01/11/20 01/11/20 01/11/20 14:51 16:57 19:29 Temperature 100.0 F H 97.7 F 98.8 F Pulse Rate 84 66 Respiratory 18 16 Rate Blood Pressure 134/78 116/55 O2 Sat by Pulse 100 97 Oximetry Medical Decision Making - Medical Decision Making HCg (-). UA unremarkable. Benzos and marijuana in drug screen. Sees therapist. No attempt at suicide. Patient has has recent wisdom teeth removal. No evidence of infection. Patient given medications for pain management. Patient medically cleared. EPS notified. Evaluated patient recommending - Lab Data Lab Results 01/11/20 01/11/20 01/11/20 Range/Units 15:10 15:10 16:07 Urine Color Yellow Urine Appearance Cloudy H (Clear) Urine pH 6.0 (5.0-8.0) Ur Specific [place] 1.031 (1.001-1.035) Urine Protein Trace H (Negative) Urine Glucose (UA) Negative (Negative) Urine Ketones Trace H (Negative) Urine Blood Negative (Negative) Urine Nitrite Negative (Negative) Urine Bilirubin Negative (Negative) Urine Urobilinogen 2.0 (<2.0) mg/dL Ur Leukocyte Esterase Trace H (Negative) Urine RBC 1 (0-5) /hpf Urine WBC 1 (0-5) /hpf Ur Squamous Epith Cells 20 H (0-4) /hpf Urine Mucus Many H (None) /hpf Urine Sperm Rare (None) /hpf Urine HCG, Qual Not Detected (Not Detectd) Urine Opiates Screen Not Detected (NotDetected) Ur Oxycodone Screen Not Detected (NotDetected) Urine Methadone Screen Not Detected (NotDetected) Ur Propoxyphene Screen Not Detected (NotDetected) Ur Barbiturates Screen Not Detected (NotDetected) U Tricyclic Antidepress Not Detected (NotDetected) Ur Phencyclidine Scrn Not Detected (NotDetected) Ur Amphetamines Screen Not Detected (NotDetected) U Methamphetamines Scrn Not Detected (NotDetected) U Benzodiazepines Scrn Detected H (NotDetected) Urine Cocaine Screen Not Detected (NotDetected) U Marijuana (THC) Screen Detected H (NotDetected) Coronavirus (PCR) Not Detected (Not Detectd) Disposition Clinical Impression: Depression Disposition: HOME SELF-CARE Condition: Stable Instructions (If sedation given, give patient instructions): Depression (ED) Is patient prescribed a controlled substance at d/c from ED?: No Referrals: Leno Hodgson MD [Primary Care Provider] - 1-2 days Time of Disposition: 10:28 (Pt discharged by > Ernestine 01/11/2020)
[2020-01-11 19:31] VITALS: BP 116/55; PULSE 66; RESP 16; TEMP 98.8
== END 2020-01-11 20:45 | disposition home or self-care (01) ==
LOC: EC 14:35
DX: F32.9 Major depressive disorder, single episode, unspecified (principal); Z32.02 Encounter for pregnancy test, result negative; F17.200 Nicotine dependence, unspecified, uncomplicated; Z88.5 Allergy status to narcotic agent; Z88.8 Allergy status to other drugs, medicaments and biological substances
CPT/HCPCS: 80306; 81001; 81025; 82075; 87635; 99284

== ENCOUNTER 2020-07-02 17:33 | Emergency (ER) | payer OTHER ==
[2020-07-02 17:57] VITALS: PULSE 64; RESP 16; TEMP 98.6
[2020-07-02] MEDS ORDERED: PANTOPRAZOLE 40 MG/10 ML VIAL IVP STA (19:25)
[2020-07-02] MEDS ORDERED: ONDANSETRON 4 MG/2 ML VIAL IVP STA ×2 (19:25→21:29)
[2020-07-02] MEDS ORDERED: SODIUM CHLORIDE 0.9% 1,000 ML IV STA (19:25)
[2020-07-02] MEDS ORDERED: HYDROmorphone 0.5 MG/0.5 ML SYRINGE IVP STA (19:26)
[2020-07-02 19:38] LABS: Basophils # (A) 0.1 k/uL (0-0.2); Basophils % (A) 1 %; Eosinophils # (A) 0.3 k/uL (0-0.7); Eosinophils % (A) 3 %; HCT 42.5 % (34.0-46.0); HGB 15.1 gm/dL (11.4-16.0); Lymphocytes % (A) 41 %; MCH 35.9 pg (25.0-35.0); MCHC 35.5 g/dL (31.0-37.0); MCV 101.1 fL (80.0-100.0); Mean Platelet Volume 7.7; Monocytes # (A) 0.6 k/uL (0-1.0); Monocytes % (A) 7 %; Neutrophils # (A) 4.6 k/uL (1.3-7.7); Neutrophils % (A) 47 %; Platelet Count 245 k/uL (150-450); RBC 4.21 m/uL (3.80-5.40); RDW 11.6 % (11.5-15.5); WBC 9.7 k/uL (3.8-10.6)
[2020-07-02 19:48] LABS: ALT 17 U/L (4-34); AST 21 U/L (14-36); African American GFR (CKD) >90 (>60 ml/min/1.73 sqM); Albumin 4.1 g/dL (3.5-5.0); Alkaline Phosphatase 71 U/L (38-126); Anion Gap 8 mmol/L; Blood Urea Nitrogen 18 mg/dL (7-17); Carbon Dioxide 25 mmol/L (22-30); Chloride 107 mmol/L (98-107); Glucose 83 mg/dL (74-99); Lipase 104 U/L (23-300); Non-African American GFR(CKD) >90 (>60 ml/min/1.73 sqM); Potassium 4.4 mmol/L (3.5-5.1); Sodium 140 mmol/L (137-145); Total Bilirubin 0.5 mg/dL (0.2-1.3); Total Protein 6.6 g/dL (6.3-8.2)
[2020-07-02 20:40] LABS: Amorphous Sediment,Urine Rare /hpf; Appearance,Urine Cloudy (Clear); Bacteria,Urine Rare /hpf; Bilirubin,Urine Negative (Negative); Blood,Urine Negative (Negative); Color,Urine Yellow; Glucose,Urine (UA) Negative (Negative); Ketones,Urine Negative (Negative); Leukocyte Esterase,Urine Negative (Negative); Mucus,Urine Many /hpf; Nitrite,Urine Negative (Negative); PH, Urine 6.5 (5.0-8.0); Protein,Urine Trace (Negative); RBC,Urine 3 /hpf (0-5); Specific Gravity,Urine 1.028 (1.001-1.035); Squamous Epithelial Cell,Urine 21 /hpf (0-4); Urobilinogen,Urine <2.0 mg/dL (<2.0); WBC,Urine 2 /hpf (0-5)
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
[2020-07-02] MEDS ORDERED: HYDROmorphone 1 MG/ML 1 ML SYRINGE IVP STA (21:29)
--- NOTE | 2020-07-02 21:55 | CT ---
EXAMINATION TYPE: CT brain kashif wo con DATE OF EXAM: 07/02/2020 COMPARISON: 12/26/2018 HISTORY: head injury, neck pain. CT DLP: 1463.3 mGycm Automated exposure control for dose reduction was used. TECHNIQUE: CT scan of the head and cervical spine are performed without contrast. FINDINGS: There is no acute intracranial hemorrhage, mass effect, or midline shift identified. The ventricles and sulci are within normal limits in size. The globes are intact and the visualized sin uses are clear. Cervical spine is visualized in its entirety from C1 through upper thoracic levels and demonstrates s atisfactory alignment without evidence of acute fracture or dislocation. Prevertebral soft tissue ap pears within normal limits. The C1-C2 articulation is unremarkable. IMPRESSION: 1. There is no acute fracture or dislocation evident in the cervical spine. 2. No acute intracranial hemorrhage, mass effect, or midline shift is seen.
[2020-07-02 22:04] VITALS: BP 94/56
--- NOTE | 2020-07-02 22:10 | CT ---
EXAMINATION TYPE: CT abdomen pelvis w con DATE OF EXAM: 07/02/2020 COMPARISON: 10/02/2017 HISTORY: Abdominal pain, vomiting. Pt unable to complete study due to vomiting CT DLP: 696.5 mGycm Automated exposure control for dose reduction was used. TECHNIQUE: Helical acquisition of images was performed from the lung bases through the pelvis. CONTRAST: Performed without Oral Contrast and with IV Contrast, patient injected with 100 mL of Isovu e 300. FINDINGS: The patient vomited during the study, therefore the abdominal pelvic CT was obtained during the equilibrium/urogram phase of IV contrast enhancement. This limits sensitivity and specificity of the CT examination. Given these limitations, the following observations are made: LUNG BASES: No significant abnormality is appreciated. LIVER/GB: No significant abnormality is appreciated. PANCREAS: No significant abnormality is seen. SPLEEN: No significant abnormality is seen. ADRENALS: No significant abnormality is seen. KIDNEYS: No significant abnormality is seen. PERITONEAL CAVITY: No abnormal fluid or gas collections RETROPERITONEAL ADENOPATHY: None visualized REPRODUCTIVE ORGANS: No significant abnormality is seen URINARY BLADDER: No significant abnormality is seen. PELVIC ADENOPATHY: None visualized. OSSEOUS STRUCTURES: No significant abnormality is seen. BOWEL: No significant abnormality is seen. VASCULATURE: Unremarkable IMPRESSION: NO ACUTE CT PROCESS.
== END 2020-07-02 22:59 | disposition home or self-care (01) ==
LOC: EC 17:33
DX: R10.12 Left upper quadrant pain (principal); M54.2 Cervicalgia; K21.9 Gastro-esophageal reflux disease without esophagitis; F32.9 Major depressive disorder, single episode, unspecified; F17.200 Nicotine dependence, unspecified, uncomplicated; F12.90 Cannabis use, unspecified, uncomplicated
CPT/HCPCS: 36415; 80053; 83690; 85025; 81001; 81025; 72125; 70450; 74177; 99284; 96374; 96375 ×2; 96376; 96361 ×3; J2405; C9113; J1170; Q9967

== ENCOUNTER → 2020-07-02 | Outpatient (CLI) | payer OTHER ==
--- NOTE | 2020-07-02 15:19 | US ---
EXAMINATION TYPE: US pelvic complete DATE OF EXAM: 07/02/2020 COMPARISON: NONE CLINICAL HISTORY: R10.2 Pelvic Pain, L Ovarian Cyst N83.0. Intermittent pelvic pain, 3, para 3, history of 3 c-sections and tubal ligation. TECHNIQUE: . Transabdominal sonographic images of the pelvis were acquired. Date of LMP: Unknown, patient states last month sometime EXAM MEASUREMENTS: Uterus: 8.5 x 4.1 x 4.4 cm Endometrial Stripe: 0.6 cm Right Ovary: 3.4 x 1.9 x 1.9 cm Left Ovary: 4.3 x 3.0 x 3.2 cm 1. Uterus: anteverted 2. Endometrium: appears wnl 3. Right Ovary: wnl 4. Left Ovary: 2.6 x 2.3 x 1.9cm cystic area 5. Bilateral Adnexa: wnl 6. Posterior cul-de-sac: wnl IMPRESSION: 1. Complex cystic area in the right ovary. Differential diagnosis includes a hemorrhagic cyst. Other etiologies not excluded follow-up to resolution recommended. Correlate with beta hCG as clinically wa rranted.
== END | disposition home or self-care (01) ==
LOC: RADUSWWP 14:28
PROVIDERS: ATTEND Obstetrics & Gynecology
DX: N83.202 Unspecified ovarian cyst, left side (principal)
CPT/HCPCS: 76856

== ENCOUNTER 2020-10-02 23:04 | Emergency (ER) | payer OTHER ==
[2020-10-02 23:22] VITALS: BP 113/71; PULSE 113; RESP 20; TEMP 98.3
--- NOTE | 2020-10-02 23:47 | ED ---
ENT HPI - General Chief complaint: ENT Stated complaint: Swelling in neck Time Seen by Provider: 10/02/20 23:27 Source: patient Mode of arrival: ambulatory Limitations: no limitations - Related Data Home Medications Medication Instructions Recorded Confirmed Ibuprofen [Motrin Ib] 800 mg PO Q8H PRN 10/02/20 10/02/20 Allergies Allergy/AdvReac Type Severity Reaction Status Date / Time metoclopramide HCl AdvReac PANICK Verified 10/02/20 23:48 [From Reglan] ATTACKS morphine AdvReac Nausea & Verified 10/02/20 23:48 Vomiting Review of Systems ROS Statement: Those systems with pertinent positive or pertinent negative responses have been documented in the HPI. ROS Other: All systems not noted in ROS Statement are negative. Past Medical History Past Medical History: GERD/Reflux Additional Past Medical History / Comment(s): gallstones, HSV History of Any Multi-Drug Resistant Organisms: None Reported Past Surgical History: Section, Cholecystectomy Additional Past Surgical History / Comment(s): c section x 3 Past Anesthesia/Blood Transfusion Reactions: Postoperative Nausea & Vomiting (PONV) Past Psychological History: Anxiety, Depression Smoking Status: Current every day smoker Past Alcohol Use History: Rare Past Drug Use History: Marijuana - Past Family History Mother Family Medical History: Fibromyalgia, Hypertension Additional Family Medical History / Comment(s): heart problems unknown General Exam Limitations: no limitations Course Vital Signs 10/02/20 23:19 Temperature 98.3 F Pulse Rate 113 H Respiratory 20 Rate Blood Pressure 113/71 O2 Sat by Pulse 100 Oximetry Medical Decision Making - Lab Data Lab Results 10/02/20 Range/Units 23:48 Group A Strep Rapid Positive A (Negative) Disposition Clinical Impression: Strep throat Disposition: HOME SELF-CARE Condition: Good Instructions (If sedation given, give patient instructions): Strep Throat (ED) Is patient prescribed a controlled substance at d/c from ED?: No Referrals: Leno Hodgson MD [Primary Care Provider] - 1-2 days
[2020-10-03] MEDS: IBUPROFEN ORAL SUSP 100 MG/5 ML CUP PO ONE (00:12)
[2020-10-03] MEDS: ACETAMINOPHEN ORAL SUSP 160 MG/5 ML CUP PO ONE (00:13)
[2020-10-03] MEDS: DEXAMETHASONE SOD PHOSPHATE 10 MG/ML 1 ML VIAL IM STA (00:14)
--- NOTE | 2020-10-03 00:18 | XR ---
EXAMINATION TYPE: XR soft tissue neck DATE OF EXAM: 10/02/2020 COMPARISON: NONE HISTORY: Sore throat. Swelling. TECHNIQUE: 2 views FINDINGS: Epiglottis is normal. Subglottic trachea appears normal. Tonsils and adenoids appear normal . Prevertebral soft tissues appear normal. IMPRESSION: Negative cervical soft tissue exam.
[2020-10-03] MEDS: AMOXIC-POT CLAV 875-125MG 1 EACH TAB PO STA (00:55)
[2020-10-03] MEDS: AMOXIC-POT CLAV 875MG STARTER PACK 2 TAB BTL PO STA (00:55)
[2020-10-03] MEDS: IBUPROFEN 600 MG STARTER PACK 4 TAB BTL PO STA (00:55)
== END 2020-10-03 00:59 | disposition home or self-care (01) ==
LOC: EC 23:04
DX: J02.0 Streptococcal pharyngitis (principal); K21.9 Gastro-esophageal reflux disease without esophagitis; F32.9 Major depressive disorder, single episode, unspecified; F41.9 Anxiety disorder, unspecified; F17.200 Nicotine dependence, unspecified, uncomplicated; F12.90 Cannabis use, unspecified, uncomplicated
CPT/HCPCS: 87430; 70360; 99283; 96372; J1100